=== PATIENT | female | born 1930 | race Caucasian/White ===

== ENCOUNTER 2017-01-13 16:38 | Emergency (ER) | payer MEDICARE, OTHER ==
[~2017-01-13] VITALS: Ht 165.1 cm; Wt 55.5 kg
[~2017-01-13 16:38] MED LIST: ATOR20TA15 PO; Aspirin Chew CHEW; BACL10TA PO; NORC5TAB PO; OMEP20TA PO; ZOFR4TAB PO
[2017-01-13 16:52] VITALS: BP 117/62; PULSE 85; RESP 18; TEMP 98.7; O2SAT 89
[2017-01-13] MEDS ORDERED: ASPI1TAB69 PO (17:10)
--- NOTE | 2017-01-13 17:12 | PD ---
HPI Chief Complaint: Fall Time Seen by Provider: 17:03 Travel History International Travel<30 days: No Contact w/Intl Traveler<30days: No Traveled to known affect area: No History of Present Illness HPI The patient was seen and examined in the presence of the nurse. This patient complains of right mid back pain from a fall. Duration is 14 hours. She was sitting on the toilet and propped her feet up to put lotion on her legs when she lost balance and fell. She struck her right posterior rib cage on the bathtub. This is the area that she has pain in. Worse with movement or deep breath. Severity is moderate. No alleviating factors. 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 PFSH Past Medical History Arthritis: Yes (OSTEOARTHRITIS) Cancer: No Cardiovascular Problems: Yes (hypertension, high cholesterol) High Cholesterol: Yes COPD: Yes Diabetes: No Diminished Hearing: Yes (PT STATES SHE IS [place]) Gastrointestinal Disorders: Yes (Nausea and vomiting) Genitourinary: No Hepatitis: No Hiatal Hernia: No Hypertension: No Immune Disorder: No Medical other: Yes (GERD RECENTLY) Musculoskeletal: Yes (OSTEOPOROSIS) Psychiatric: No Reproductive: No Respiratory: Yes Thyroid Disease: No Influenza Vaccination: Yes ?: Not Menopausal: Yes Past Surgical History Cholecystectomy: Yes Eye Surgery: Yes (MERLENE. CATARACT EXTRACT.) Gynecologic Surgery: Yes (HYSTERECTOMY) Hysterectomy: Yes Other Surgery: Yes Social History Alcohol Use: No Tobacco Use: Yes (1PPD) Substance Use: No Allergies-Medications (Allergen,Severity, Reaction): Coded Allergies: Actonel (Verified Allergy, Severe, Itching, 01/13/17) Penicillin (Verified Allergy, Severe, Hives, 01/13/17) Shellfish (Verified Allergy, Severe, Itching, 01/13/17) Sulfa (Verified Allergy, Severe, VOMITING, 01/13/17) Reported Meds & Prescriptions Reported Meds & Active Scripts Active [place] (Hydrocodone-Acetaminophen) 5-325 mg Tab 1 Tab PO Q6H PRN Reported Aspirin 81 Mg Tabdr 81 Mg PO DAILY Atorvastatin (Atorvastatin Calcium) 20 Mg Tab 20 Mg PO HS Baclofen 10 Mg Tab 10 Mg PO TID Review of Systems General / Constitutional: No: Fever Eyes: No: Visual changes HENT: No: Headaches Cardiovascular: No: Chest Pain or Discomfort Respiratory: No: Shortness of Breath Gastrointestinal: No: Abdominal Pain Genitourinary: No: Dysuria Musculoskeletal: Positive: Pain Skin: No Rash Neurologic: No: Weakness Psychiatric: No: Depression Endocrine: No: Polydipsia Hematologic/Lymphatic: No: Easy Bruising Physical Exam Narrative GENERAL: Thin elderly well-developed patient with right posterior rib cage pain . SKIN: Warm and dry. HEAD: Atraumatic. Normocephalic. EYES: Pupils equal and round. No scleral icterus. No injection or drainage. ENT: No nasal bleeding or discharge. Mucous membranes pink and moist. NECK: Trachea midline. No JVD. CARDIOVASCULAR: Regular rate and rhythm. No murmur appreciated. RESPIRATORY: No accessory muscle use. Diffuse rhonchi. Breath sounds equal bilaterally. GASTROINTESTINAL: Abdomen soft, non-tender, nondistended. Hepatic and splenic margins not palpable. MUSCULOSKELETAL: No obvious deformities. No clubbing. No cyanosis. No edema. She has readily reproducible tenderness to the right rib cage underneath the right scapula. No crepitus or paradoxical rib movement or bruising. NEUROLOGICAL: Awake and alert. No obvious cranial nerve deficits. Motor grossly within normal limits. Normal speech. PSYCHIATRIC: Appropriate mood and affect; insight and judgment normal. Data Data Last Documented VS Vital Signs Date Time Temp Pulse Resp B/P Pulse Ox O2 Delivery O2 Flow Rate FiO2 01/13/17 17:10 93 Nasal Cannula 2 01/13/17 16:52 98.7 85 18 117/62 Orders Iv Access Insert/Monitor (01/13/17 17:09) Ondansetron Inj (Zofran Inj) (01/13/17 17:15) Morphine Inj (Morphine Inj) (01/13/17 17:15) Chest, Single Ap (01/13/17 ) [facility] Medical Decision Making Medical Screen Exam Complete: Yes Emergency Medical Condition: Yes Medical Record Reviewed: Yes Differential Diagnosis Rib fracture, pneumothorax, chest wall contusion Narrative Course I have reviewed the patient's electronic medical record. IV placed I gave her IV morphine and IV Zofran for symptom relief I reviewed her chest x-ray which shows no evidence of pneumothorax or rib fracture Likely has contused ribs. She feels improved after morphine Does have chronic pain and has Lortab at home The patient was advised to follow up with their physician and return if they worsen. Diagnosis Primary Impression: Contusion of rib on right side Qualified Code: S20.211A - Contusion of rib on right side, initial encounter Additional Instructions: The patient was advised to follow up with their physician and return if they worsen. Med/Other Pt SpecificInfo: Other Disposition: 01 DISCHARGE HOME Condition: Stable Chip Peres MD Jan 13, 2017 17:12
[2017-01-13] MEDS ORDERED: MORPHINE SULFATE 4 MG/ML INJ IV PUSH ONE (17:15)
[2017-01-13] MEDS ORDERED: ONDANSETRON HCL 4 MG/2 ML VIAL IVP ONE (17:15)
--- NOTE | 2017-01-13 17:30 | RADHPO ---
EXAM DATE/TIME: 01/13/2017 17:19 [facility] COMPARISON: CHEST PA & LAT, January 20, 2013, 11:51. CHEST SINGLE AP, September 23, 2016, 23:15. INDICATIONS : Right sided chest pain post fall today MEDICAL HISTORY : None. SURGICAL HISTORY : None. ENCOUNTER: Initial ACUITY: 1 day PAIN SCORE: 9/10 LOCATION: Right lower chest FINDINGS: The cardiac silhouette is enlarged in transverse diameter. The lungs are free of acute parenchymal op acity. No effusions are identified. There is prominence of the aortic knob is with calcification litzy acteristic of atherosclerotic vascular disease. There are chronic fibrotic changes bilaterally. CONCLUSION: 1. Cardiomegaly. No acute pulmonary disease. Geoff Lujan MD on January 13, 2017 at 17:28 Board Certified Radiologist. This report was verified electronically.
== END 2017-01-13 18:55 | disposition home or self-care (01) ==
LOC: PHED 16:38
DX: S20.211A Contusion of right front wall of thorax, initial encounter (principal); J44.9 Chronic obstructive pulmonary disease, unspecified; I10 Essential (primary) hypertension; E78.00 Pure hypercholesterolemia, unspecified; W18.12XA Fall from or off toilet with subsequent striking against object, initial encounter; Y93.89 Activity, other specified; Y92.002 Bathroom of unspecified non-institutional (private) residence as the place of occurrence of the external cause; F17.210 Nicotine dependence, cigarettes, uncomplicated
CPT/HCPCS: 71010; 96374; 96375; 99284; J2270; J2405

== ENCOUNTER 2017-02-05 10:27 | Emergency (ER) | payer OTHER ==
[~2017-02-05] VITALS: Ht 165.1 cm; Wt 55.2 kg
[~2017-02-05 10:27] MED LIST changes: +ASPI1TAB69 PO; -Aspirin Chew CHEW; -OMEP20TA PO; -ZOFR4TAB PO
[2017-02-05 10:34] VITALS: BP 142/70; PULSE 70; RESP 16; TEMP 97.7; O2SAT 96
[2017-02-05] MEDS ORDERED: SODIUM CHLOR 0.9% 1000 ML INJ 1,000 ML IV SCH (10:48)
--- NOTE | 2017-02-05 10:52 | PD ---
HPI Chief Complaint: GI Complaint Time Seen by Provider: 10:43 Travel History International Travel<30 days: No Contact w/Intl Traveler<30days: No Traveled to known affect area: No History of Present Illness HPI Patient is a 86-year-old female here with complaint of nausea vomiting diarrhea. Patient was in her normal state of health yesterday. Woke up this morning with complaint of nausea. She's had 4 episodes of emesis. No hematemesis. One episode of loose stool but no georgie diarrhea. No hematochezia. She denies any associated abdominal pain. No fevers or chills. Previous abdominal surgeries include cholecystectomy and hysterectomy. She denies a history of bowel obstruction. Patient has Zofran that she uses when necessary at home for anorexia and chronic nausea. She tried this this a.m., but vomited shortly thereafter and saw the pill in emesis. PFSH Past Medical History Hx Anticoagulant Therapy: Yes (asa 81mg ) Arthritis: Yes (OSTEOARTHRITIS) Cancer: No Cardiovascular Problems: Yes (hypertension, high cholesterol) High Cholesterol: Yes COPD: Yes Diabetes: No Diminished Hearing: Yes (PT STATES SHE IS [place]) Gastrointestinal Disorders: Yes (Nausea and vomiting) Genitourinary: No Hepatitis: No Hiatal Hernia: No Hypertension: No Immune Disorder: No Musculoskeletal: Yes (OSTEOPOROSIS) Psychiatric: No Reproductive: No Respiratory: Yes (copd) Thyroid Disease: No ?: Not Menopausal: Yes Past Surgical History Cholecystectomy: Yes Eye Surgery: Yes (MERLENE. CATARACT EXTRACT.) Gynecologic Surgery: Yes (HYSTERECTOMY) Hysterectomy: Yes Other Surgery: Yes Social History Alcohol Use: No Tobacco Use: Yes (1PPD) Substance Use: No Allergies-Medications (Allergen,Severity, Reaction): Coded Allergies: Actonel (Verified Allergy, Severe, Itching, 02/05/17) Penicillin (Verified Allergy, Severe, Hives, 02/05/17) Shellfish (Verified Allergy, Severe, Itching, 02/05/17) Sulfa (Verified Allergy, Severe, VOMITING, 02/05/17) Reported Meds & Prescriptions Reported Meds & Active Scripts Active Phenergan Supp (Promethazine HCl) 12.5 Mg Supp 12.5 Mg RECTAL Q4H PRN [place] (Hydrocodone-Acetaminophen) 5-325 mg Tab 1 Tab PO Q6H PRN Reported Aspirin 81 Mg Tabdr 81 Mg PO DAILY Atorvastatin (Atorvastatin Calcium) 20 Mg Tab 20 Mg PO HS Baclofen 10 Mg Tab 10 Mg PO TID Review of Systems Except as stated in HPI: all other systems reviewed are Neg Physical Exam Narrative GENERAL: Elderly female dry heaving SKIN: Focused skin assessment warm/dry. HEAD: Normocephalic. EYES: No scleral icterus. No injection or drainage. ENT: Mucous membranes pink and moist. NECK: Supple CARDIOVASCULAR: Regular rate and rhythm. No murmur appreciated. RESPIRATORY: No accessory muscle use. Clear to auscultation. Breath sounds equal bilaterally. GASTROINTESTINAL: Abdomen soft, non-tender, nondistended. Hepatic and splenic margins not palpable. MUSCULOSKELETAL: Normal gait NEUROLOGICAL: Awake and alert. Motor grossly within normal limits. Normal speech. PSYCHIATRIC: Appropriate mood and affect; insight and judgment normal. Data Data Last Documented VS Vital Signs Date Time Temp Pulse Resp B/P Pulse Ox O2 Delivery O2 Flow Rate FiO2 02/05/17 11:54 63 18 119/66 96 Room Air 02/05/17 10:34 97.7 Orders Complete Blood Count With Diff (02/05/17 10:48) Comprehensive Metabolic Panel (02/05/17 10:48) Lipase (02/05/17 10:48) Iv Access Insert/Monitor (02/05/17 10:48) Ecg Monitoring (02/05/17 10:48) Oximetry (02/05/17 10:48) Ondansetron Inj (Zofran Inj) (02/05/17 11:00) Sodium Chlor 0.9% 1000 Ml Inj (Ns 1000 M (02/05/17 10:48) Sodium Chloride 0.9% Flush (Ns Flush) (02/05/17 11:00) Abdomen, Upright Only (02/05/17 10:48) Electrocardiogram (02/05/17 ) Labs Laboratory Tests Test 02/05/17 11:00 White Blood Count 12.5 TH/MM3 Red Blood Count 4.90 MIL/MM3 Hemoglobin 14.6 GM/DL Hematocrit 43.9 % Mean Corpuscular Volume 89.6 FL Mean Corpuscular Hemoglobin 29.7 PG Mean Corpuscular Hemoglobin 33.1 % Concent Red Cell Distribution Width 13.8 % Platelet Count 307 TH/MM3 Mean Platelet Volume 6.9 FL Neutrophils (%) (Auto) 76.8 % Lymphocytes (%) (Auto) 17.7 % Monocytes (%) (Auto) 2.0 % Eosinophils (%) (Auto) 3.1 % Basophils (%) (Auto) 0.4 % Neutrophils # (Auto) 9.5 TH/MM3 Lymphocytes # (Auto) 2.2 TH/MM3 Monocytes # (Auto) 0.3 TH/MM3 Eosinophils # (Auto) 0.4 TH/MM3 Basophils # (Auto) 0.1 TH/MM3 CBC Comment DIFF FINAL Differential Comment Sodium Level 136 MEQ/L Potassium Level 3.8 MEQ/L Chloride Level 98 MEQ/L Carbon Dioxide Level 28.0 MEQ/L Anion Gap 10 MEQ/L Blood Urea Nitrogen 8 MG/DL Creatinine 0.73 MG/DL Estimat Glomerular Filtration 75 ML/MIN Rate Random Glucose 133 MG/DL Calcium Level 9.3 MG/DL Total Bilirubin 0.5 MG/DL Aspartate Amino Transf 12 U/L (AST/SGOT) Alanine Aminotransferase 16 U/L (ALT/SGPT) Alkaline Phosphatase 106 U/L Total Protein 7.3 GM/DL Albumin 3.4 GM/DL Lipase 138 U/L MDM Medical Decision Making Medical Screen Exam Complete: Yes Emergency Medical Condition: Yes Medical Record Reviewed: Yes Differential Diagnosis 86-year-old female here with complaint of nausea vomiting and loose stools this morning. Differential includes gastritis, pancreatitis, hepatobiliary pathology. Her abdominal examination is benign making bowel obstruction less likely. She does have some chronic nausea and vomiting which could contribute to her symptoms. Less likely cardiac equivalent. Narrative Course Patient placed on monitor, IV established and blood obtained. Twelve-lead EKG showed sinus rhythm with T waves are at the precordial leads, similar to patient 's previous EKG. CBC, CMP, lipase unremarkable. X-ray of the abdomen obtained that by my read shows no obvious evidence of obstruction. Again my pretest suspicion is low and I do not think patient warrants CT imaging of the abdomen at this time. She is feeling improved, and was able to tolerate oral challenge and will be discharged home. Diagnosis Primary Impression: Nausea and vomiting Qualified Code: R11.2 - Non-intractable vomiting with nausea, unspecified vomiting type Referrals: Primary Care Physician as needed Patient Instructions: Acute Nausea and Vomiting (ED), General Instructions Additional Instructions: Small, frequent sips of fluids as tolerated. Advance diet slowly. You may use your home Zofran as needed for nausea and vomiting but if you vomit this up, try the Phenergan suppository prescribed. Med/Other Pt SpecificInfo: Prescription(s) given Scripts Promethazine Supp (Phenergan Supp)12.5 Mg Supp12.5 Mg RECTAL Q4H PRN (NAUSEA OR VOMITING) #10 SUPP Ref 0 Prov:Abril Chaparro MD 02/05/17 Disposition: 01 DISCHARGE HOME Condition: Stable Abril Chaparro MD Feb 05, 2017 10:52
[2017-02-05] MEDS ORDERED: SODIUM CHLORIDE 0.9% FLUSH 10 ML FLUSH IV FLUSH PRN (11:00)
[2017-02-05] MEDS ORDERED: ONDANSETRON HCL 4 MG/2 ML VIAL IVP ONE (11:00)
[2017-02-05 11:01] VITALS: O2SAT 98
[2017-02-05 11:11] LABS: AUTOMATED NEUTROPHIL # 9.5 TH/MM3 (1.8-7.7); BASOPHIL # 0.1 TH/MM3 (0-0.2); BASOPHIL % 0.4 % (0.0-2.0); EOSINOPHIL # 0.4 TH/MM3 (0-0.4); EOSINOPHIL % 3.1 % (0.0-4.0); HEMATOCRIT 43.9 % (35.0-46.0); LYMPH % 17.7 % (9.0-44.0); LYMPHOCYTE # 2.2 TH/MM3 (1.0-4.8); MEAN CELL VOLUME 89.6 FL (80.0-100.0); MEAN CORPUSCULAR HEMOGLOBIN 29.7 PG (27.0-34.0); MEAN CORPUSCULAR HGB CONC 33.1 % (32.0-36.0); NEUT % 76.8 % (16.0-70.0); PLATELET COUNT 307 TH/MM3 (150-450); RED CELL DISTRIBUTION WIDTH 13.8 % (11.6-17.2); WHITE BLOOD COUNT 12.5 TH/MM3 (4.0-11.0)
[2017-02-05 11:14] LABS: HEMO FLAGS DIFF FINAL
[2017-02-05 11:21] LABS: CHLORIDE 98 MEQ/L (98-107); POTASSIUM 3.8 MEQ/L (3.5-5.1); SODIUM (NA) 136 MEQ/L (136-145)
[2017-02-05 11:25] LABS: ANION GAP 10 MEQ/L (5-15); BLOOD UREA NITROGEN 8 MG/DL (7-18)
[2017-02-05 11:28] LABS: ALT (GPT) 16 U/L (10-53); AST (GOT) 12 U/L (15-37); GLOMERULAR FILTRATION RATE 75 ML/MIN (>89)
--- NOTE | 2017-02-05 11:29 | RADHPO ---
EXAM DATE/TIME: 02/05/2017 10:57 [facility] COMPARISON: No previous studies available for comparison. INDICATIONS : Vomiting. MEDICAL HISTORY : None. SURGICAL HISTORY : Hysterectomy. Cholecystectomy. ENCOUNTER: Initial ACUITY: 1 day PAIN SCORE: 0/10 LOCATION: Bilateral abdomen FINDINGS: There is no free air. Limited exam shows some scattered air fluid levels in what looks like large an d small bowel. Heart is enlarged. CONCLUSION: Limited exam, scattered air fluid levels without free air. Juan Cason MD FACR on February 05, 2017 at 11:23 Board Certified Radiologist. This report was verified electronically.
[2017-02-05 11:30] LABS: TOTAL BILIRUBIN ADULT 0.5 MG/DL (0.2-1.0)
[2017-02-05 11:31] LABS: ALKALINE PHOSPHATASE 106 U/L (45-117)
[2017-02-05] MEDS ORDERED: PROM2SUP RECTAL (11:41)
[2017-02-05 11:54] VITALS: BP 119/66; PULSE 63; RESP 18; O2SAT 96
[2017-02-05] MEDS ORDERED: MECLIZINE HCL 25 MG TAB PO ONE (12:45)
[2017-02-05] MEDS ORDERED: ONDANSETRON ODT 4 MG TAB PO ONE (12:45)
--- NOTE | 2017-02-07 21:40 | EKG ---
Date Performed: 02/05/2017 Time Performed: 10:57:00 PTAGE: 86 years EKG: Sinus rhythm Left axis deviation Ant/septal and lateral T wave changes may be due to myocardial ischemia Abnormal ECG PREVIOUS TRACING : 09/25/2016 06.04 DOCTOR: Tang Awad Interpretating Date/Time 02/07/2017 21:34:33
== END 2017-02-05 12:53 | disposition home or self-care (01) ==
LOC: PHED 10:27
DX: R11.2 Nausea with vomiting, unspecified (principal); M19.90 Unspecified osteoarthritis, unspecified site; I10 Essential (primary) hypertension; E78.00 Pure hypercholesterolemia, unspecified; J44.9 Chronic obstructive pulmonary disease, unspecified
CPT/HCPCS: 74000; 80053; 83690; 85025; 93005; 96361; 96374; 99284; J2405; J7030

== ENCOUNTER 2018-06-19 15:04 | Observation (INO) ==
--- NOTE | 2018-06-19 16:04 | ED ---
HPI General Chief Complaint: Altered Mental Status Stated Complaint: Altered mental status Time Seen by Provider: 06/19/18 15:24 History of Present Illness HPI narrative: The patient was seen and examined in the presence of the nurse. This patient is brought in by her grandson who takes care of her. She has some dementia but generally will get out of bed and interactive and get around with a walker. He says that she is much worse than usual. She is more confused and lethargic. She has not been out of bed at 11 AM yesterday morning. There is been no injury or fever. She does have COPD but refuses to use her oxygen or nebulizers. Symptom severity is moderate. Duration 2 days. No alleviating factors. No exacerbating factors. Related Data Home Medications Medication Instructions Recorded Confirmed atorvastatin 40 mg PO DAILY 06/19/18 06/19/18 baclofen 25 mg PO TID 06/19/18 06/19/18 ibuprofen 800 mg PO TID 06/19/18 06/19/18 oxycodone 7.5 mg PO Q4-6H PRN 06/19/18 06/19/18 Allergies Allergy/AdvReac Type Severity Reaction Status Date / Time penicillin G Allergy Severe Hives Verified 06/19/18 15:15 risedronate sodium Allergy Severe Itching Verified 06/19/18 15:15 shellfish derived Allergy Severe Itching Verified 06/19/18 15:15 Sulfa (Sulfonamide Allergy Severe VOMITING Verified 06/19/18 15:15 Antibiotics) Review of Systems ROS: all other systems reviewed are negative [facility] Medical History Medical History Arthritis (Acute) COPD (chronic obstructive pulmonary disease) (Acute) Dementia (Acute) Hypercholesterolemia (Acute) Surgical history unknown (Acute) Social History Social History Substance History: No History of Abuse Smoking Status: Current every day smoker Tobacco Type: Cigarettes How Often Do You Have a Drink Containing Alcohol: Never Recent Travel in [facility] within the Last 8 Weeks: No Recent Out of Country Travel within the Last 8 Weeks: No Immunization History Tetanus Immunization: Unsure Hx Influenza Vaccine This Season: Yes Exam Narrative Exam Narrative: GENERAL: Thin elderly well-developed patient in no apparent distress. SKIN: Focused skin assessment reveals no rash and nodules. Skin is Warm and dry. HEAD: Atraumatic. Normocephalic. EYES: Pupils equal and round. No scleral icterus. No injection or drainage. ENT: No nasal bleeding or discharge. Mucous membranes pink and moist. NECK: Trachea midline. No JVD. CARDIOVASCULAR: Regular rate and rhythm. No murmur appreciated. RESPIRATORY: No accessory muscle use. Clear to auscultation. Breath sounds equal bilaterally. GASTROINTESTINAL: Abdomen soft, has suprapubic distention but nontender. Hepatic and splenic margins not palpable. MUSCULOSKELETAL: No obvious deformities. No clubbing. No cyanosis. No edema. NEUROLOGICAL: Awake but drowsy appearing. No obvious cranial nerve deficits. Motor exam challenging to assess accurately due to limited participation. Very limited speech. PSYCHIATRIC: Depressed mood and flat affect; insight and judgment reduced . Course Initial Documented Vital Signs Temperature 98.4 F 06/19/18 15:12 Pulse Rate 87 06/19/18 15:12 Respiratory Rate 18 06/19/18 15:12 Blood Pressure 179/84 H 06/19/18 15:12 Pulse Oximetry 93 L 06/19/18 15:12 Last Documented Vital Signs Temperature 98.4 F 06/19/18 15:12 Pulse Rate 87 06/19/18 15:12 Respiratory Rate 18 06/19/18 15:12 Blood Pressure 179/84 H 06/19/18 15:12 Pulse Oximetry 94 L 06/19/18 15:37 Medical Decision Making MDM Narrative Medical decision making narrative: IV placed and labs sent. Nurse placed a Cunningham catheter and she drained out 2200 cc of yellow urine. She had massive urinary retention. She is 89 years on cath specimen. I gave her 1 g IV Rocephin Labs are reviewed. She has normal renal function and a low potassium of 3.1. Brain CT shows some atrophy but nothing emergent. She requires hospital admission. She has altered mental status and lethargy with some failure to thrive. She has hypokalemia and UTI and massive urinate I reviewed with the hospitalist who will admit. Medical Records Medical records reviewed: Yes I reviewed the patient's medical records. Lab Data Result diagrams: 06/19/18 15:30 06/19/18 15:30 Lab Results 06/19/18 06/19/18 06/19/18 Range/Units 15:17 15:30 15:30 WBC 11.5 H (4.0-11.0) th/mm3 RBC 4.40 (4.00-5.30) mil/mm3 Hgb 12.5 (11.6-15.3) gm/dL Hct 37.5 (35.0-46.0) % MCV 85.3 (80.0-100.0) fL MCH 28.3 (27.0-34.0) pg MCHC 33.2 (32.0-36.0) % RDW 17.4 H (11.6-17.2) % Plt Count 288 (150-450) th/mm3 MPV 7.1 (7.0-11.0) fL Neut % (Auto) 77.9 H (16.0-70.0) % Lymph % (Auto) 16.9 (9.0-44.0) % [place] % (Auto) 4.7 (0.0-8.0) % Eos % (Auto) 0.2 (0.0-4.0) % Baso % (Auto) 0.3 (0.0-2.0) % Neut # (Auto) 9.0 H (1.8-7.7) th/mm3 Lymph # (Auto) 2.0 (1.0-4.8) th/mm3 [place] # (Auto) 0.5 (0.0-0.9) th/mm3 Eos # (Auto) 0.0 (0.0-0.4) th/mm3 Baso # (Auto) 0.0 (0.0-0.2) th/mm3 WBC Differential . Differential Comment Auto diff final Sodium 142 (136-145) meq/L Potassium 3.1 L (3.5-5.1) meq/L Chloride 105 (98-107) meq/L Carbon Dioxide 23.6 (21.0-32.0) meq/L Anion Gap 13 (5-15) meq/L BUN 10 (7-18) mg/dL Creatinine 0.59 (0.50-1.00) mg/dL Estimated GFR Greater than 89 (>89) mL/min POC Glucose 103 (68-110) mg/dl Random Glucose 98 (74-106) mg/dL Calcium 8.3 L (8.5-10.1) mg/dL Total Bilirubin 0.6 (0.2-1.0) mg/dL AST 11 L (15-37) U/L ALT 9 L (10-53) U/L Alkaline Phosphatase 108 (45-117) U/L Total Protein 6.6 (6.4-8.2) g/dL Albumin 3.1 L (3.4-5.0) g/dL TSH 0.572 (0.358-3.740) uIU/mL Urine Color (Yellw/Straw) Urine Clarity (Clear) Urine pH (5.0-8.5) Ur Specific Rowe (1.002-1.035) Urine Protein (Neg-Trace) mg/dL Urine Glucose (UA) (Negative) mg/dL Urine Ketones (Negative) mg/dL Urine Occult Blood (Negative) Urine Nitrate (Negative) Urine Bilirubin (Negative) Urine Urobilinogen (Less than 2) mg/dL Ur Leukocyte Esterase (Negative) Urine RBC (0-3) /hpf Urine WBC (0-5) /hpf Urine Bacteria (None) /hpf Urine Mucus (Occasional) /lpf Micro UA Comment Urine Culture Comments 06/19/18 Range/Units 15:55 WBC (4.0-11.0) th/mm3 RBC (4.00-5.30) mil/mm3 Hgb (11.6-15.3) gm/dL Hct (35.0-46.0) % MCV (80.0-100.0) fL MCH (27.0-34.0) pg MCHC (32.0-36.0) % RDW (11.6-17.2) % Plt Count (150-450) th/mm3 MPV (7.0-11.0) fL Neut % (Auto) (16.0-70.0) % Lymph % (Auto) (9.0-44.0) % [place] % (Auto) (0.0-8.0) % Eos % (Auto) (0.0-4.0) % Baso % (Auto) (0.0-2.0) % Neut # (Auto) (1.8-7.7) th/mm3 Lymph # (Auto) (1.0-4.8) th/mm3 [place] # (Auto) (0.0-0.9) th/mm3 Eos # (Auto) (0.0-0.4) th/mm3 Baso # (Auto) (0.0-0.2) th/mm3 WBC Differential Differential Comment Sodium (136-145) meq/L Potassium (3.5-5.1) meq/L Chloride (98-107) meq/L Carbon Dioxide (21.0-32.0) meq/L Anion Gap (5-15) meq/L BUN (7-18) mg/dL Creatinine (0.50-1.00) mg/dL Estimated GFR (>89) mL/min POC Glucose (68-110) mg/dl Random Glucose (74-106) mg/dL Calcium (8.5-10.1) mg/dL Total Bilirubin (0.2-1.0) mg/dL AST (15-37) U/L ALT (10-53) U/L Alkaline Phosphatase (45-117) U/L Total Protein (6.4-8.2) g/dL Albumin (3.4-5.0) g/dL TSH (0.358-3.740) uIU/mL Urine Color Yellow (Yellw/Straw) Urine Clarity Hazy H (Clear) Urine pH 6.0 (5.0-8.5) Ur Specific [place] 1.008 (1.002-1.035) Urine Protein 30 H (Neg-Trace) mg/dL Urine Glucose (UA) Negative (Negative) mg/dL Urine Ketones Trace H (Negative) mg/dL Urine Occult Blood Moderate H (Negative) Urine Nitrate Negative (Negative) Urine Bilirubin Negative (Negative) Urine Urobilinogen Less than 2 (Less than 2) mg/dL Ur Leukocyte Esterase Moderate H (Negative) Urine RBC 3 (0-3) /hpf Urine WBC 97 H (0-5) /hpf Urine Bacteria Rare H (None) /hpf Urine Mucus Few H (Occasional) /lpf Micro UA Comment Cath-culture ind Urine Culture Comments Cath-cult indicated Imaging Data Radiologist's impression: Head CT 06/19/18 15:37 CONCLUSION: 1. Bilateral cortical atrophy and chronic white matter changes. 2. No significant change compared to the prior examination. . Discharge Plan Discharge Disposition Patient Disposition: 30 Still Patient Discharge Details Diagnosis: Altered mental status, Acute UTI, Adult failure to thrive Physicians Team ED Provider: Chip Peres Primary Care Provider: Jayesh Pardo V Rxs /Orders / Referrals /Forms Prescriptions: No Action atorvastatin 40 mg Tablet 40 mg PO DAILY RF: 0 ibuprofen 800 mg Tablet 800 mg PO TID RF: 0 baclofen 10 mg Tablet 25 mg PO TID RF: 0 oxycodone 7.5 mg Tablet, Oral Only 7.5 mg PO Q4-6H PRN (Reason: Pain) RF: 0 Discharge Interventions Interventions: Vital Signs Last Done: 06/19/18 15:12 Status ED Status: With Doctor
--- NOTE | 2018-06-19 16:24 | CT ---
EXAM DATE: 06/19/2018 4:16 PM EDT AGE/SEX: 87 years / Female INDICATIONS: Altered mental status. CLINICAL DATA: This is the patient's initial encounter. Patient reports that signs and symptoms have been present for 1 day and indicates a pain score of Nonresponsive. MEDICAL/SURGICAL HISTORY: Dementia. None. RADIATION DOSE: 56.35 CTDI (mGy) COMPARISON: [facility], CT BRAIN W/O CONTRAST, 09/24/2016. . TECHNIQUE: CT of the head without contrast. Using automated exposure control and adjustment of the mA and/or kV according to patient size, radiation dose was kept as low as reasonably achievable to ob tain optimal diagnostic quality images. DICOM format image data is available electronically for revi ew and comparison. FINDINGS: Cerebrum: The ventricles are normal for age. Bilateral cortical atrophy and chronic white matter alonzo nges. No evidence of midline shift, mass lesion, hemorrhage or acute infarction. No extraaxial fluid collections are seen. Posterior Fossa: The cerebellum and brainstem are intact. The 4th ventricle is midline. The cerebe llopontine angle is unremarkable. Extracranial: The visualized portion of the orbits is intact. Skull: The calvaria is intact. No evidence of skull fracture. CONCLUSION: 1. Bilateral cortical atrophy and chronic white matter changes. 2. No significant change compared to the prior examination. . Electronically signed by: Dickson Smith MD 06/19/2018 4:22 PM EDT
[2018-06-19 16:34] LABS: Baso % (Auto) 0.3 % (0.0-2.0); Eos % (Auto) 0.2 % (0.0-4.0); Hematocrit 37.5 % (35.0-46.0); Hemoglobin 12.5 gm/dL (11.6-15.3); Lymph % (Auto) 16.9 % (9.0-44.0); Mean Corpuscular HGB Conc 33.2 % (32.0-36.0); Mean Corpuscular Hemoglobin 28.3 pg (27.0-34.0); Mean Corpuscular Volume 85.3 fL (80.0-100.0); Mean Platelet Volume 7.1 fL (7.0-11.0); Mono # (Auto) 0.5 th/mm3 (0.0-0.9); Mono % (Auto) 4.7 % (0.0-8.0); Neut % (Auto) 77.9 % (16.0-70.0); Platelet Count 288 th/mm3 (150-450); Red Cell Distribution Width 17.4 % (11.6-17.2); White Blood Count 11.5 th/mm3 (4.0-11.0)
[2018-06-19 16:42] LABS: Bacteria,Urine Rare /hpf; Bilirubin,Urine Negative (Negative); Clarity,Urine Hazy (Clear); Color,Urine Yellow (Yellw/Straw); Glucose,Urine (UA) Negative (Negative); Leukocyte Esterase,Urine Moderate (Negative); Mucus,Urine Few /lpf (Occasional); Nitrite,Urine Negative (Negative); Specific Gravity,Urine 1.008 (1.002-1.035)
[2018-06-19 16:47] LABS: Alanine Aminotransferase 9 U/L (10-53); Albumin 3.1 g/dL (3.4-5.0); Anion Gap 13 meq/L (5-15); Aspartate Aminotransferase 11 U/L (15-37); Blood Urea Nitrogen 10 mg/dL (7-18); Calcium 8.3 mg/dL (8.5-10.1); Carbon Dioxide 23.6 meq/L (21.0-32.0); Chloride 105 meq/L (98-107); Glomerular Filtration Rate Greater Than 89 mL/min (>89); Glucose,Random 98 mg/dL (74-106); Potassium 3.1 meq/L (3.5-5.1); Sodium 142 meq/L (136-145)
[2018-06-19 16:58] LABS: Alkaline Phosphatase 108 U/L (45-117); Thyroid Stimulating Hormone 0.572 uIU/mL (0.358-3.740); Total Protein 6.6 g/dL (6.4-8.2)
[2018-06-19] MEDS ORDERED: Temazepam 15 MG Capsule PO PRN (17:30)
[2018-06-19] MEDS ORDERED: Bisacodyl 10 MG Supp RECTAL PRN (17:30)
[2018-06-19] MEDS ORDERED: Acetaminophen 325 MG Tablet PO PRN (17:30)
--- NOTE | 2018-06-19 17:55 | P.HP ---
History of Present Illness Service: [facility] Primary Care Physician: Jayesh Pardo MD Chief Complaint: AMS History of Present Illness: 87-year-old female with past medical history significant for COPD, arthritis, dementia, hypercholesteremia, tobacco and alcohol abuse who lives with grandson. Patient presents to the emergency department today with grandson after he noticed patient was not feeling well. Grandjovani reports that since yesterday he has noticed patient has been somewhat confused and calling him by different names. Patient also had nausea yesterday morning and has not been eating much since yesterday. Did not notice any fevers, diarrhea or other symptoms. Grandjovani reports that patient has not been smoking for the past 2 days or drinking for the past 2 days secondary to her altered mental status and confusion. She was able to ambulate today to the toilet and did void. No new changes to medications, no recent falls reported. Workup in the emergency department showed mild leukocytosis WBC count at 11.5, neutrophil count 77.9. Mild hypokalemia patient is seen and examined resting in ED stretcher, awake however confused. She does follow simple commands in bilateral upper and lower extremities and only oriented to self. The majority of history is gathered from grandjovani. - Diagnosis (1) Acute UTI (2) Altered mental status (3) Urinary retention Review of Systems All other systems reviewed negative except as stated in HPI [facility] - History History Provided By: Family Member - Medical History Medical History: Medical History (Last Reviewed 06/19/18 @ 18:18 by Kennedy Alarcon) Arthritis COPD (chronic obstructive pulmonary disease) Dementia Hypercholesterolemia Surgical history unknown - Tobacco History Tobacco Use In Past 30 Days: Yes Smoking Status: Current every day smoker Tobacco Type: Cigarettes - Alcohol History How Often Do You Have a Drink Containing Alcohol: Never - Substance Use History Substance History: No History of Abuse - Travel History Recent Travel in the [place] Within the Last 8 Weeks: No Recent Travel Out of the Country Within the Last 8 Weeks: No - Immunization History Tetanus Immunization: Unsure Hx Influenza Vaccine This Season: Yes Medications and Allergies Active Medications: Active Medications Acetaminophen (Tylenol) 650 mg PO Q4H PRN PRN Reason: Temp > 100.4 Al Hydroxide/Mg Hydroxide (Milk Of Magnesia Liq) 30 ml PO Q12H PRN PRN Reason: Mild Constipation Bisacodyl (Dulcolax Supp) 10 mg RECTAL DAILY PRN PRN Reason: SEVERE CONSITIPATION Enoxaparin Sodium (Lovenox Inj) 30 mg SQ Q24H LILY Ceftriaxone Sodium 1,000 mg/ (Sodium Chloride) 100 mls @ 200 mls/hr IV.SIG Q24H LILY Sodium Chloride (Ns Inj) 1,000 mls @ 100 mls/hr IV.CONT .Q10H LILY Lactulose (Lactulose Liq) 30 ml PO DAILY PRN PRN Reason: SEVERE CONSITIPATION Ondansetron HCl (Zofran Inj) 4 mg IV.PUSH Q6H PRN PRN Reason: NAUSEA OR VOMITING Sodium Chloride (Ns Flush) 2 ml IV.FLUSH PRN PRN PRN Reason: FLUSH AFTER USING IV ACCESS Allergies Allergy/AdvReac Type Severity Reaction Status Date / Time penicillin G Allergy Severe Hives Verified 06/19/18 15:15 risedronate sodium Allergy Severe Itching Verified 06/19/18 15:15 shellfish derived Allergy Severe Itching Verified 06/19/18 15:15 Sulfa (Sulfonamide Allergy Severe VOMITING Verified 06/19/18 15:15 Antibiotics) Home Medications Medication Instructions Recorded Confirmed Type atorvastatin 40 mg PO DAILY 06/19/18 06/19/18 History baclofen 25 mg PO TID 06/19/18 06/19/18 History ibuprofen 800 mg PO TID 06/19/18 06/19/18 History oxycodone 7.5 mg PO Q4-6H PRN 06/19/18 06/19/18 History Exam Vital signs: Vital Signs 06/19/18 15:12 06/19/18 15:37 06/19/18 17:11 Temperature 36.9 C Pulse Rate 87 78 Respiratory Rate 18 18 Blood Pressure 179/84 H 172/79 H Pulse Oximetry 93 L 94 L 99 Intake & Output 06/18/18 06/19/18 06/19/18 18:59 06:59 18:59 Output Total 2199 / 2199 Balance -2199 / -2199 Weight 54.431 kg Output: Urine Amount (Catheter) 2199 / 2199 Indwelling Urethral Catheter 2199 / 2199 Narrative: GENERAL: Thin elderly female, restless. SKIN: Warm and dry. HEAD: Atraumatic. Normocephalic. EYES: Pupils equal and round. No scleral icterus. No injection or drainage. ENT: No nasal bleeding or discharge. Dry mucous membranes. NECK: Trachea midline. No JVD. CARDIOVASCULAR: Regular rate and rhythm. RESPIRATORY: No accessory muscle use. Clear to auscultation. Breath sounds equal bilaterally. GASTROINTESTINAL: Abdomen soft, non-tender, nondistended. + Bowel sounds MUSCULOSKELETAL: Extremities without clubbing, cyanosis, or edema. No obvious deformities. NEUROLOGICAL: Awake, restless oriented to self, diffusely confused, hard of hearing. No obvious cranial nerve deficits. Follows commands, moving bilateral upper and lower extremities. Normal speech. Results - Labs CBC & Chem 7: 06/19/18 15:30 06/19/18 15:30 Labs: Laboratory Results - last 24 hr 06/19/18 06/19/18 06/19/18 15:17 15:30 15:30 WBC 11.5 H RBC 4.40 Hgb 12.5 Hct 37.5 MCV 85.3 MCH 28.3 MCHC 33.2 RDW 17.4 H Plt Count 288 MPV 7.1 Neut % (Auto) 77.9 H Lymph % (Auto) 16.9 [place] % (Auto) 4.7 Eos % (Auto) 0.2 Baso % (Auto) 0.3 Neut # (Auto) 9.0 H Lymph # (Auto) 2.0 [place] # (Auto) 0.5 Eos # (Auto) 0.0 Baso # (Auto) 0.0 WBC Differential . Differential Comment Auto diff final Sodium 142 Potassium 3.1 L Chloride 105 Carbon Dioxide 23.6 Anion Gap 13 BUN 10 Creatinine 0.59 Estimated GFR Greater than 89 POC Glucose 103 Random Glucose 98 Calcium 8.3 L Total Bilirubin 0.6 AST 11 L ALT 9 L Alkaline Phosphatase 108 Total Protein 6.6 Albumin 3.1 L TSH 0.572 Urine Color Urine Clarity Urine pH Ur Specific [place] Urine Protein Urine Glucose (UA) Urine Ketones Urine Occult Blood Urine Nitrate Urine Bilirubin Urine Urobilinogen Ur Leukocyte Esterase Urine RBC Urine WBC Urine Bacteria Urine Mucus Micro UA Comment Urine Culture Comments 06/19/18 15:55 WBC RBC Hgb Hct MCV MCH MCHC RDW Plt Count MPV Neut % (Auto) Lymph % (Auto) [place] % (Auto) Eos % (Auto) Baso % (Auto) Neut # (Auto) Lymph # (Auto) [place] # (Auto) Eos # (Auto) Baso # (Auto) WBC Differential Differential Comment Sodium Potassium Chloride Carbon Dioxide Anion Gap BUN Creatinine Estimated GFR POC Glucose Random Glucose Calcium Total Bilirubin AST ALT Alkaline Phosphatase Total Protein Albumin TSH Urine Color Yellow Urine Clarity Hazy H Urine pH 6.0 Ur Specific [place] 1.008 Urine Protein 30 H Urine Glucose (UA) Negative Urine Ketones Trace H Urine Occult Blood Moderate H Urine Nitrate Negative Urine Bilirubin Negative Urine Urobilinogen Less than 2 Ur Leukocyte Esterase Moderate H Urine RBC 3 Urine WBC 97 H Urine Bacteria Rare H Urine Mucus Few H Micro UA Comment Cath-culture ind Urine Culture Comments Cath-cult indicated - Imaging Impressions Head CT 06/19/18 15:37 CONCLUSION: 1. Bilateral cortical atrophy and chronic white matter changes. 2. No significant change compared to the prior examination. . Caprini VTE Risk Assessment Caprini VTE Risk Assessment: Moderate/High Risk (score >= 2) Caprini Risk Assessment Model: Point Value = 1 Point Value = 2 Point Value = 3 Point Value = 5 Age 41-60 Minor surgery BMI > 25 kg/m2 Swollen legs Varicose veins or History of unexplained or recurrent spontaneous Oral contraceptives or hormone replacement Sepsis (< 1 month) Serious lung disease, including pneumonia (< 1 month) Abnormal pulmonary function Acute myocardial infarction Congestive heart failure (< 1 month) History of inflammatory bowel disease Medical patient at bed rest Age 61-74 Arthroscopic surgery Major open surgery (> 45 min) Laparoscopic surgery (> 45 min) Malignancy Confined to bed (> 72 hours) Immobilizing plaster cast Central venous access Age >= 75 History of VTE Family history of VTE Factor V Leiden Prothrombin [id number] Lupus anticoagulant Anticardiolipin antibodies Elevated serum homocysteine Heparin-induced thrombocytopenia Other congenital or acquired thrombophilia Stroke (< 1 month) Elective arthroplasty Hip, pelvis, or leg fracture Acute spinal cord injury (< 1 month) Prophylaxis Regimen: Total Risk Factor Score Risk Level Prophylaxis Regimen 0-1 Low Early ambulation 2 Moderate Order ONE of the following: *Sequential Compression Device (SCD) *Heparin 5000 units SQ BID 3-4 Higher Order ONE of the following medications: *Heparin 5000 units SQ TID *Enoxaparin/Lovenox 40 mg SQ daily (WT < 150 kg, CrCl > 30 mL/min) *Enoxaparin/Lovenox 30 mg SQ daily (WT < 150 kg, CrCl > 10-29 mL/min) *Enoxaparin/Lovenox 30 mg SQ BID (WT < 150 kg, CrCl > 30 mL/min) AND/OR *Sequential Compression Device (SCD) 5 or more Highest Order ONE of the following medications: *Heparin 5000 units SQ TID (Preferred with Epidurals) *Enoxaparin/Lovenox 40 mg SQ daily (WT < 150 kg, CrCl > 30 mL/min) *Enoxaparin/Lovenox 30 mg SQ daily (WT < 150 kg, CrCl > 10-29 mL/min) *Enoxaparin/Lovenox 30 mg SQ BID (WT < 150 kg, CrCl > 30 mL/min) AND *Sequential Compression Device (SCD) Assessment and Plan - Assessment (1) Acute UTI Code(s): N39.0 - Urinary tract infection, site not specified Status: Acute (2) Altered mental status Code(s): R41.82 - Altered mental status, unspecified Status: Acute (3) Urinary retention Code(s): R33.9 - Retention of urine, unspecified Status: Acute - Plan 87-year-old female with past medical history significant for COPD, arthritis, dementia, hypercholesteremia, tobacco and alcohol abuse who lives with grandson. Patient presents to the emergency department today with grandson due to altered mental status. Urinary tract infection Possible pyelonephritis -UA grossly positive, culture pending -Receive IV Rocephin in the ER, will continue for the moment -Follow final urine culture and sensitivity -Zofran for nausea Urinary retention - Likely due to UTI - >2L of urine removed s/p Cunningham catheter insertion -Maintain catheter in place for the moment, continue IV antibiotics Encephalopathy/AMS Hx Dementia -CT of the head with bilateral cortical atrophy and chronic white matter changes , no significant change compared to prior examination. -EKG with normal sinus rhythm -Secondary to above, treat UTI, provide IV hydration with NS at 100 ml/hr - IV morphine for pain, hold off on oral oxycodone or baclofen for the moment -N.p.o. except for medications Hypokalemia, mild -Provide IV replacement, recheck BMP in the a.m. COPD -Nasal cannula, as needed breathing treatments Hypertension -No reported history of hypertension, possibly secondary to pain -IV morphine for pain -PRN IV Vasotec DVT prophylaxis-subcu Lovenox Discussed Condition With: Discussed with RN and harleen Joseph. (2) Altered mental status Qualifiers: Altered mental status type: somnolence Qualified Code(s): R40.0 - Felix
[2018-06-19] MEDS: Sod Chloride 0.9% Inj 1,000 ML IV.CONT SCH (17:58)
[2018-06-19] MEDS: Potassium Chlor 20 mEq Premix 20 MEQ/100 ML PIGGYBACK IV.SIG SCH ×2 (17:58→21:35)
[2018-06-19] MEDS: Enoxaparin Inj 30 MG/0.3 ML Syringe SQ SCH (21:35)
[2018-06-19] MEDS: Senna/Docusate Sodium 8.6/50 MG Tablet PO SCH (21:35)
[2018-06-19] MEDS: Morphine Inj 4 MG/ML Vial IV.PUSH PRN (21:37)
[2018-06-20] MEDS: Sod Chloride 0.9% Inj 1,000 ML IV.CONT SCH ×4 (01:26→22:43)
[2018-06-20 05:43] LABS: Baso # (Auto) 0.1 th/mm3 (0.0-0.2); Baso % (Auto) 0.5 % (0.0-2.0); Eos # (Auto) 0.1 th/mm3 (0.0-0.4); Eos % (Auto) 0.6 % (0.0-4.0); Hematocrit 37.7 % (35.0-46.0); Hemoglobin 12.1 gm/dL (11.6-15.3); Lymph # (Auto) 2.3 th/mm3 (1.0-4.8); Mean Corpuscular HGB Conc 32.2 % (32.0-36.0); Mean Corpuscular Hemoglobin 27.5 pg (27.0-34.0); Mean Corpuscular Volume 85.6 fL (80.0-100.0); Mean Platelet Volume 6.9 fL (7.0-11.0); Mono # (Auto) 0.8 th/mm3 (0.0-0.9); Mono % (Auto) 5.6 % (0.0-8.0); Neut # (Auto) 11.9 th/mm3 (1.8-7.7); Neut % (Auto) 78.3 % (16.0-70.0); Platelet Count 269 th/mm3 (150-450); Red Cell Distribution Width 16.9 % (11.6-17.2); White Blood Count 15.2 th/mm3 (4.0-11.0)
[2018-06-20 05:57] LABS: Anion Gap 8 meq/L (5-15); Blood Urea Nitrogen 7 mg/dL (7-18); Calcium 8.5 mg/dL (8.5-10.1); Carbon Dioxide 28.8 meq/L (21.0-32.0); Chloride 104 meq/L (98-107); Glomerular Filtration Rate Greater Than 89 mL/min (>89); Glucose,Random 98 mg/dL (74-106); Potassium 3.3 meq/L (3.5-5.1); Sodium 141 meq/L (136-145)
[2018-06-20] MEDS: Senna/Docusate Sodium 8.6/50 MG Tablet PO SCH ×2 (09:30→20:33)
--- NOTE | 2018-06-20 13:21 | P.PN ---
Subjective Interval history: Follow up for UTI, urinary retention, AMS. The patient is awake, alert, oriented to person, hospital, and year "18". Does not know which hospital, does not know the month. She is a poor historian when attempting to explain the events leading up to her admission. She reports moderate sharp stabbing LLQ abdominal pains today. She reports "a little bit" of dysuria and suprapubic pain. Denies nausea/vomiting, fevers/chills. She states she has been more constipated recently with only small amount of stool yesterday. She has no other medical complaints at this time. Physical Exam Vital signs: Vital Signs 06/19/18 15:12 06/19/18 15:37 06/19/18 17:11 Temperature 98.4 F Pulse Rate 87 78 Respiratory Rate 18 18 Blood Pressure 179/84 H 172/79 H Pulse Oximetry 93 L 94 L 99 06/19/18 17:30 06/19/18 20:00 06/19/18 21:14 Temperature 98.1 F Pulse Rate 96 H Respiratory Rate 28 H Blood Pressure 164/64 H Pulse Oximetry 96 95 95 06/20/18 00:00 06/20/18 03:49 06/20/18 08:00 Temperature 98 F 98 F 98.3 F Pulse Rate 101 H 100 H 78 Respiratory Rate 15 16 20 Blood Pressure 145/74 H 148/79 H 143/63 H Pulse Oximetry 95 95 96 06/20/18 11:58 Temperature 98.2 F Pulse Rate 81 Respiratory Rate 16 Blood Pressure 126/59 L Pulse Oximetry 96 Intake & Output 06/19/18 06/20/18 06/20/18 18:59 06:59 18:59 Intake Total 100 / 100 1200 / 1200 Output Total 2200 / 2200 1600 / 1600 Balance -2100 / -2100 -400 / -400 Weight 54.431 kg Intake: IV 100 / 100 1200 / 1200 NS Inj 1,000 ML @ 100 mls/hr IV 1000 / 1000 .CONT .Q10H LILY Rx#:[id number] KCl 20 mEq Premix Inj 20 meq In 200 / 200 100 ml @ 50 mls/hr IV.SIG Q2H LILY Rx#:[id number] Rocephin Inj 1,000 MG In NS Inj 100 / 100 100 ML @ 200 mls/hr IV.SIG ONCE ONE Rx#:[id number] Output: Urine Amount (Catheter) 2199 1600 / 1600 Indwelling Urethral Catheter 2199 1600 / 1600 Narrative: GENERAL: Well-nourished, well-developed elderly female patient in NAD. SKIN: Warm and dry. No rash. HEENT: Normocephalic. Atraumatic. Pupils equal and round. Mucous membranes pink and moist. CARDIOVASCULAR: Regular rate and rhythm. No murmur appreciated. RESPIRATORY: No accessory muscle use. Clear to auscultation. Breath sounds equal bilaterally. GASTROINTESTINAL: Abdomen soft, nondistended, LLQ tenderness to palpation. Normoactive bowel sounds x4. MUSCULOSKELETAL: No obvious deformities. Extremities without clubbing, cyanosis , or edema. NEUROLOGICAL: Awake and alert. No obvious cranial nerve deficits. Motor grossly within normal limits. Moving all extremities spontaneously. Normal speech. - Urinary Catheter Management Indwelling Urethral Catheter Cath placed during this visit: yes Reason for continuing: Chronic Urinary Retention Insertion date: 06/19/18 Insertion time: 15:49 Results - Labs CBC & Chem 7: 06/20/18 05:10 06/20/18 05:10 Laboratory Results - last 24 hr 06/19/18 06/19/18 06/19/18 15:17 15:30 15:30 WBC 11.5 H RBC 4.40 Hgb 12.5 Hct 37.5 MCV 85.3 MCH 28.3 MCHC 33.2 RDW 17.4 H Plt Count 288 MPV 7.1 Neut % (Auto) 77.9 H Lymph % (Auto) 16.9 [place] % (Auto) 4.7 Eos % (Auto) 0.2 Baso % (Auto) 0.3 Neut # (Auto) 9.0 H Lymph # (Auto) 2.0 Jay # (Auto) 0.5 Eos # (Auto) 0.0 Baso # (Auto) 0.0 WBC Differential . Differential Comment Auto diff final Sodium 142 Potassium 3.1 L Chloride 105 Carbon Dioxide 23.6 Anion Gap 13 BUN 10 Creatinine 0.59 Estimated GFR Greater than 89 POC Glucose 103 Random Glucose 98 Calcium 8.3 L Total Bilirubin 0.6 AST 11 L ALT 9 L Alkaline Phosphatase 108 Total Protein 6.6 Albumin 3.1 L TSH 0.572 Urine Color Urine Clarity Urine pH Ur Specific [place] Urine Protein Urine Glucose (UA) Urine Ketones Urine Occult Blood Urine Nitrate Urine Bilirubin Urine Urobilinogen Ur Leukocyte Esterase Urine RBC Urine WBC Urine Bacteria Urine Mucus Micro UA Comment Urine Culture Comments 06/19/18 06/20/18 06/20/18 15:55 05:10 05:10 WBC 15.2 H RBC 4.40 Hgb 12.1 Hct 37.7 MCV 85.6 MCH 27.5 MCHC 32.2 RDW 16.9 Plt Count 269 MPV 6.9 L Neut % (Auto) 78.3 H Lymph % (Auto) 15.0 Jay % (Auto) 5.6 Eos % (Auto) 0.6 Baso % (Auto) 0.5 Neut # (Auto) 11.9 H Lymph # (Auto) 2.3 Jay # (Auto) 0.8 Eos # (Auto) 0.1 Baso # (Auto) 0.1 WBC Differential . Differential Comment Auto diff final Sodium 141 Potassium 3.3 L Chloride 104 Carbon Dioxide 28.8 Anion Gap 8 BUN 7 Creatinine 0.46 L Estimated GFR Greater than 89 POC Glucose Random Glucose 98 Calcium 8.5 Total Bilirubin AST ALT Alkaline Phosphatase Total Protein Albumin TSH Urine Color Yellow Urine Clarity Hazy H Urine pH 6.0 Ur Specific [place] 1.008 Urine Protein 30 H Urine Glucose (UA) Negative Urine Ketones Trace H Urine Occult Blood Moderate H Urine Nitrate Negative Urine Bilirubin Negative Urine Urobilinogen Less than 2 Ur Leukocyte Esterase Moderate H Urine RBC 3 Urine WBC 97 H Urine Bacteria Rare H Urine Mucus Few H Micro UA Comment Cath-culture ind Urine Culture Comments Cath-cult indicated 06/20/18 11:26 WBC RBC Hgb Hct MCV MCH MCHC RDW Plt Count MPV Neut % (Auto) Lymph % (Auto) Jay % (Auto) Eos % (Auto) Baso % (Auto) Neut # (Auto) Lymph # (Auto) Jay # (Auto) Eos # (Auto) Baso # (Auto) WBC Differential Differential Comment Sodium Potassium Chloride Carbon Dioxide Anion Gap BUN Creatinine Estimated GFR POC Glucose 132 H Random Glucose Calcium Total Bilirubin AST ALT Alkaline Phosphatase Total Protein Albumin TSH Urine Color Urine Clarity Urine pH Ur Specific [place] Urine Protein Urine Glucose (UA) Urine Ketones Urine Occult Blood Urine Nitrate Urine Bilirubin Urine Urobilinogen Ur Leukocyte Esterase Urine RBC Urine WBC Urine Bacteria Urine Mucus Micro UA Comment Urine Culture Comments Microbiology 06/19/18 15:55 Catheterized Urine Urine Culture - Preliminary No growth in 24 hours - Imaging Impressions Head CT 06/19/18 15:37 CONCLUSION: 1. Bilateral cortical atrophy and chronic white matter changes. 2. No significant change compared to the prior examination. . Assessment and Plan - Assessment (1) Acute UTI Code(s): N39.0 - Urinary tract infection, site not specified Status: Acute (2) Altered mental status Code(s): R41.82 - Altered mental status, unspecified Status: Acute (3) Urinary retention Code(s): R33.9 - Retention of urine, unspecified Status: Acute - Plan 87-year-old female with past medical history significant for COPD, arthritis, dementia, hypercholesteremia, tobacco and alcohol abuse who lives with grandson. Patient presents to the emergency department today with grandson due to altered mental status. Urinary tract infection, Possible pyelonephritis: afebrile, +leukocytosis WBC 15K. -UA grossly positive, culture pending -Continue IV Rocephin -Follow final urine culture and sensitivity -Zofran for nausea Acute Urinary retention: >2L of urine removed s/p Cunningham catheter insertion in the ED. Possibly secondary to home meds vs UTI, however need to rule out obstructive uropathy -checking CT abd/pelvis -Maintain Cunningham catheter for now -monitor Is&Os LLQ Abdominal Pain: unclear etiology, possibly secondary to infection -checking CT abd/pelvis as above -supportive treatment with IVF, antiemetics, and pain control prn Encephalopathy/AMS: with Hx Dementia. Suspect exacerbated by infection. Patient also on multiple sedating medications. -CT of the head with bilateral cortical atrophy and chronic white matter changes , no significant change compared to prior examination. -EKG with normal sinus rhythm -Secondary to above, treat UTI, provide IV hydration with NS at 100 ml/hr -hold off on patient's baclofen, continue oxycodone at lower dose Hypokalemia, mild -Given IV KCl replacement -Repeat K 3.3, given additional po KCl -Monitor BMP, replace electrolytes as needed COPD: chronic, does not appear to be in exacerbation -continue -Nasal cannula, as needed breathing treatments Hypertension -No reported history of hypertension, possibly secondary to pain -IV morphine for pain -PRN IV Vasotec DVT prophylaxis-Lovenox Discharge Planning: Discharge pending further clinical improvement. Awaiting CT abd/pelvis and urine culture. (2) Altered mental status Qualifiers: Altered mental status type: somnolence Qualified Code(s): R40.0 - Somnolence
[2018-06-20] MEDS ORDERED: Diatrizoate Meglum/Diatrizoate Sod Liq 9 ML UDC PO ONE (14:15)
--- NOTE | 2018-06-20 16:19 | ECG ---
Date Performed: 06/19/2018 Time Performed: 15:18:51 PTAGE: 87 years EKG: Sinus rhythm MARKED LEFT AXIS DEVIATION INCOMPLETE RIGHT BUNDLE BRANCH BLOCK NONSPECIFIC ST & T-WAVE ABNORMALITY ABNORMAL ECG Since the PREVIOUS TRACING , no significant change noted PREVIOUS TRACIN02/05/2017 10.57 DOCTOR: Mckenna Grey Interpretating Date/Time 06/20/2018 16:18:49
--- NOTE | 2018-06-20 18:48 | CT ---
EXAM DATE: 06/20/2018 6:35 PM EDT AGE/SEX: 87 years / Female INDICATIONS: Left lower quadrant pain, urinary retention. CLINICAL DATA: This is the patient's initial encounter. Patient reports that signs and symptoms have been present for 1 day and indicates a pain score of 6/10. MEDICAL/SURGICAL HISTORY: Chronic obstructive pulmonary disease. Dementia. None. ORAL CONTRAST: Prescribed oral contrast ingested. RADIATION DOSE: 6.71 CTDI (mGy) COMPARISON: [facility], CT ABDOMEN & PELVIS W/O CONTRAST, 09/20/2015. . TECHNIQUE: Multiple contiguous axial images were obtained through the abdomen and pelvis following b olus infusion of 70 ml Omnipaque 350 (iohexol) nonionic water-soluble contrast as a single exam dos e. Prescribed oral contrast ingested. Using automated exposure control and adjustment of the mA and/ or kV according to patient size, radiation dose was kept as low as reasonably achievable to obtain op timal diagnostic quality images. DICOM format image data is available electronically for review and comparison. FINDINGS: Lower Lungs: Bronchiectasis is present in the right lower lobe. There is patchy areas of elevated opa city. Liver: The liver has a homogeneous density without space-occupying lesion. There is no dilation of th e biliary tree. Spleen: Homogeneous density without enlargement. Pancreas: Unremarkable without mass or calcification. Kidneys: Normal in size and shape. No evidence of solid mass or hydronephrosis. Bilateral renal cyst s are again noted. Adrenal Glands: Bilateral stable low-density adrenal adenomas are again noted. Aorta: The aorta and proximal iliac vessels are grossly unremarkable without aneurysmal dilation. Bowel/Mesentery: The bowel loops are grossly unremarkable. The cecum and sigmoid colon have a normal configuration. Abdominal Wall: Intact. Retroperitoneum: No evidence of adenopathy in the retrocrural, para-aortic, or deep pelvic regions. Bladder: A Cunningham catheter is present with air-fluid level. There is diffuse bladder wall thickening. Is increased density which is ill-defined within the bladder which could represent hemorrhage or mas s. Reproductive Organs: No abnormal masses or calcifications seen. Inguinal: The inguinal region is unremarkable without evidence of adenopathy. Bony Structures: Osteopenia, degenerative change and scoliosis are present. There are multiple compr ession fracture deformities in the lower thoracic and lumbar spine. CONCLUSION: 1. A catheter in the bladder with air-fluid levels and bladder wall thickening. There is ill-defined increased density which could represent hemorrhage or possible mass. 2. Bronchiectasis in the right lower lobe with areas of consolidative opacity. This could represent pneumonia. 3. Osteopenia and multiple compression fracture deformities in the thoracic and lumbar spine. 4. The kidneys are unremarkable in appearance except for simple cysts. There are no renal calculi or obstruction. 5. Stable bilateral adrenal adenomas. Electronically signed by: Mandeep Mariee MD 06/20/2018 6:47 PM EDT
[2018-06-20] MEDS: Morphine Inj 4 MG/ML Vial IV.PUSH PRN (20:27)
[2018-06-20] MEDS: Enoxaparin Inj 30 MG/0.3 ML Syringe SQ SCH (21:23)
[2018-06-21 07:37] LABS: Baso # (Auto) 0.1 th/mm3 (0.0-0.2); Baso % (Auto) 0.4 % (0.0-2.0); Eos # (Auto) 0.1 th/mm3 (0.0-0.4); Eos % (Auto) 0.5 % (0.0-4.0); Hematocrit 33.2 % (35.0-46.0); Hemoglobin 10.8 gm/dL (11.6-15.3); Lymph # (Auto) 2.1 th/mm3 (1.0-4.8); Lymph % (Auto) 17.6 % (9.0-44.0); Mean Corpuscular HGB Conc 32.4 % (32.0-36.0); Mean Corpuscular Hemoglobin 27.8 pg (27.0-34.0); Mean Corpuscular Volume 85.8 fL (80.0-100.0); Mean Platelet Volume 7.2 fL (7.0-11.0); Mono # (Auto) 0.7 th/mm3 (0.0-0.9); Mono % (Auto) 6.4 % (0.0-8.0); Neut # (Auto) 8.8 th/mm3 (1.8-7.7); Neut % (Auto) 75.1 % (16.0-70.0); Platelet Count 236 th/mm3 (150-450); Red Blood Count 3.87 mil/mm3 (4.00-5.30); Red Cell Distribution Width 16.7 % (11.6-17.2); White Blood Count 11.7 th/mm3 (4.0-11.0)
[2018-06-21 08:06] LABS: Anion Gap 9 meq/L (5-15); Blood Urea Nitrogen 6 mg/dL (7-18); Calcium 8.2 mg/dL (8.5-10.1); Carbon Dioxide 28.4 meq/L (21.0-32.0); Chloride 101 meq/L (98-107); Glomerular Filtration Rate Greater Than 89 mL/min (>89); Glucose,Random 89 mg/dL (74-106); Potassium 3.1 meq/L (3.5-5.1); Sodium 138 meq/L (136-145)
[2018-06-21 08:17] LABS: Magnesium 1.8 mg/dL (1.5-2.5)
[2018-06-21] MEDS: Senna/Docusate Sodium 8.6/50 MG Tablet PO SCH ×2 (10:26→21:31)
[2018-06-21] MEDS: Sod Chloride 0.9% Inj 1,000 ML IV.CONT SCH (10:27)
[2018-06-21] MEDS: Azithromycin Inj 500 MG in Sodium Chlor 0.9% Inj 250 ML IV.SIG SCH (12:18)
--- NOTE | 2018-06-21 14:45 | MB ---
cc: [facility] [place] DO DATE: 06/21/2018 HISTORY OF PRESENT ILLNESS: Ms. Gonzalez is an 87-year-old female who presents with confusion. History was taken at the bedside from the daughter. The patient has a history of dementia. She was found to be in urinary retention upon admission, and a Cunningham catheter was placed for approximately a liter of urine. CT scan was also performed in the emergency room that demonstrated ill-defined increased density, which could represent hemorrhage or mass within the bladder. She was noted to have bilateral simple cysts without any hydronephrosis. According to the daughter, she does have some chronic kidney disease and her creatinine on admission was 0.41. She denies having any urinary tract infections in the past. According to the daughter, however, she does have some difficulty with urination over the last few weeks. She has had a decrease in her ability to ambulate due to her ongoing chronic low back pain from degenerative disk disease. She denies any history of gross hematuria, stones, or infections. PAST MEDICAL HISTORY: Includes COPD, arthritis, dementia, hypercholesterolemia, tobacco and alcohol abuse. PAST SURGICAL HISTORY: Unknown surgical history. SOCIAL HISTORY: Heavy smoker for many, many years. Also, history of alcohol abuse. No drug use is noted. FAMILY HISTORY: Unknown. REVIEW OF SYSTEMS: Unable to obtain due to patient's dementia. PHYSICAL EXAMINATION: VITAL SIGNS: Temperature 98.6, heart rate 75, respiratory rate 16, 137/65. GENERAL: She is a frail 87-year-old female in no acute distress. HEENT: Normocephalic, atraumatic. Pupils equal, round, regular, reactive to light. Extraocular movements intact. NECK: Supple. HEART: Regular rate and rhythm. LUNGS: Diminished breath sounds bilaterally. ABDOMEN: Soft, nontender, nondistended. GENITALIA: Normal female external genitalia is noted. Cunningham catheter is in place, draining clear urine at the present time. EXTREMITIES: Show no cyanosis, clubbing, or edema. NEUROLOGIC: Cranial nerves 2-12 are intact. LABORATORY DATA: White count is noted to be 11.7, hemoglobin 10.8, hematocrit 33.2, platelet count of 236,000. Sodium 138, potassium 3.1, chloride 101, CO2 of 28.4, BUN of 6, creatinine 0.41, glucose of 89. Urinalysis shows moderate leukocyte esterase, 97 white cells and 3 red cells. Again, imaging shows bilateral simple renal cysts with a clot versus mass within the bladder. ASSESSMENT AND PLAN: An 87-year-old female admitted with confusion, with possible urinary tract infection and urinary retention. Cunningham placed for approximately 1 liter of clear urine. We will maintain Cunningham catheter now. Check the urine culture. Continue with IV antibiotics. The patient will need cystoscopy as an outpatient, and would recommend physical therapy and pain management to help with ambulation prior to void trial. Wean narcotics as appropriate. Thank you for the consult and allowing us to participate in the care of this patient. DO Janina Morrow , 02:07 PM , 02:17 PM
--- NOTE | 2018-06-21 17:05 | P.PN ---
Physical Exam Vital signs: Vital Signs 06/20/18 20:00 06/20/18 22:46 06/21/18 00:38 Temperature 98.7 F 97.7 F Pulse Rate 91 H 91 H Respiratory Rate 17 20 Blood Pressure 164/74 H 142/67 H Pulse Oximetry 95 92 L 06/21/18 04:00 06/21/18 06:12 06/21/18 06:17 Temperature 97.8 F Pulse Rate 77 77 77 Respiratory Rate 18 Blood Pressure 109/55 L Pulse Oximetry 06/21/18 07:31 06/21/18 08:00 06/21/18 12:00 Temperature 98.8 F 98.6 F Pulse Rate 79 75 Respiratory Rate 14 16 Blood Pressure 120/58 L 137/65 Pulse Oximetry 94 L 94 L 98 06/21/18 16:00 Temperature 99.4 F Pulse Rate 79 Respiratory Rate 14 Blood Pressure 143/63 H Pulse Oximetry 95 Intake & Output 06/20/18 06/21/18 06/21/18 18:59 06:59 18:59 Intake Total 1350 / 1350 1100 / 1100 1000 / 1000 Output Total 500 / 500 1150 / 1150 Balance 850 / 850 -50 / -50 1000 / 1000 Intake: IV 1000 / 1000 1100 / 1100 1000 / 1000 NS Inj 1,000 ML @ 100 mls/hr IV 1000 / 1000 1000 / 1000 1000 / 1000 .CONT .Q10H [facility] Rx#:[id number] Rocephin Inj 1,000 MG In NS Inj 100 / 100 100 ML @ 200 mls/hr IV.SIG Q24H [facility] Rx#:[id number] Oral 350 / 350 Output: Urine Amount (Catheter) 500 / 500 1150 / 1150 Indwelling Urethral Catheter 500 / 500 1150 / 1150 Other: Date of Last Bowel Movement 06/20/18 - Urinary Catheter Management Indwelling Urethral Catheter Cath placed during this visit: yes Reason for continuing: Chronic Urinary Retention Insertion date: 06/19/18 Insertion time: 15:49 Results - Labs CBC & Chem 7: 06/21/18 06:05 06/21/18 06:05 Laboratory Results - last 24 hr 06/21/18 06/21/18 06:05 06:05 WBC 11.7 H RBC 3.87 L Hgb 10.8 L Hct 33.2 L MCV 85.8 MCH 27.8 MCHC 32.4 RDW 16.7 Plt Count 236 MPV 7.2 Neut % (Auto) 75.1 H Lymph % (Auto) 17.6 [place] % (Auto) 6.4 Eos % (Auto) 0.5 Baso % (Auto) 0.4 Neut # (Auto) 8.8 H Lymph # (Auto) 2.1 [place] # (Auto) 0.7 Eos # (Auto) 0.1 Baso # (Auto) 0.1 WBC Differential . Differential Comment Auto diff final Sodium 138 Potassium 3.1 L Chloride 101 Carbon Dioxide 28.4 Anion Gap 9 BUN 6 L Creatinine 0.41 L Estimated GFR Greater than 89 Random Glucose 89 Calcium 8.2 L Magnesium 1.8 Microbiology 06/19/18 15:55 Catheterized Urine Urine Culture - Final No growth in 48 hours - Imaging Impressions Abdomen/Pelvis CT 06/20/18 00:00 CONCLUSION: 1. A catheter in the bladder with air-fluid levels and bladder wall thickening. There is ill-defined increased density which could represent hemorrhage or possible mass. 2. Bronchiectasis in the right lower lobe with areas of consolidative opacity. This could represent pneumonia. 3. Osteopenia and multiple compression fracture deformities in the thoracic and lumbar spine. 4. The kidneys are unremarkable in appearance except for simple cysts. There are no renal calculi or obstruction. 5. Stable bilateral adrenal adenomas. Assessment and Plan - Assessment (1) Acute UTI Code(s): N39.0 - Urinary tract infection, site not specified Status: Acute (2) Altered mental status Code(s): R41.82 - Altered mental status, unspecified Status: Acute (3) Urinary retention Code(s): R33.9 - Retention of urine, unspecified Status: Acute - Plan 87-year-old female with past medical history significant for COPD, arthritis, dementia, hypercholesteremia, tobacco and alcohol abuse who lives with grandson. Patient presents to the emergency department today with grandson due to altered mental status. Acute Urinary retention: >2L of urine removed s/p Cunningham catheter insertion in the ED. Possibly secondary to home meds vs UTI, however need to rule out obstructive uropathy -CT abd/pelvis -showed density of the bladder question of mass versus hemorrhage. Urology consulted -recommends outpatient cystoscopy. -Maintain Cunningham catheter for now -monitor Is&Os Pneumonia Right lower lobe bronchiectasis. -06/21 Continue Rocephin started for UTI. Add azithromycin. Encephalopathy/AMS: with Hx Dementia. Patient also on multiple sedating medications. -CT of the head with bilateral cortical atrophy and chronic white matter changes , no significant change compared to prior examination. -EKG with normal sinus rhythm -hold off on patient's baclofen, continue oxycodone at lower dose Hypokalemia, mild -Given IV KCl replacement -Repeat K 3.3, given additional po KCl -Monitor BMP, replace electrolytes as needed COPD: chronic, does not appear to be in exacerbation -continue -Nasal cannula, as needed breathing treatments Hypertension -No reported history of hypertension, possibly secondary to pain -IV morphine for pain -PRN IV Vasotec Urinary tract infection -UA grossly positive, culture no growth in 48 hrs -Initially given IV Rocephin DVT prophylaxis-Lovenox (2) Altered mental status Qualifiers: Altered mental status type: somnolence Qualified Code(s): R40.0 - Somnolence
[2018-06-21] MEDS: Enoxaparin Inj 30 MG/0.3 ML Syringe SQ SCH (21:33)
[2018-06-22] MEDS: Sod Chloride 0.9% Inj 1,000 ML IV.CONT SCH ×3 (06:17→17:30)
[2018-06-22 07:35] LABS: Baso # (Auto) 0.1 th/mm3 (0.0-0.2); Baso % (Auto) 0.5 % (0.0-2.0); Eos # (Auto) 0.1 th/mm3 (0.0-0.4); Eos % (Auto) 0.9 % (0.0-4.0); Hematocrit 38.5 % (35.0-46.0); Hemoglobin 12.6 gm/dL (11.6-15.3); Lymph # (Auto) 2.3 th/mm3 (1.0-4.8); Lymph % (Auto) 22.9 % (9.0-44.0); Mean Corpuscular HGB Conc 32.6 % (32.0-36.0); Mean Corpuscular Volume 85.9 fL (80.0-100.0); Mean Platelet Volume 7.3 fL (7.0-11.0); Mono # (Auto) 0.7 th/mm3 (0.0-0.9); Mono % (Auto) 7.3 % (0.0-8.0); Neut # (Auto) 6.8 th/mm3 (1.8-7.7); Neut % (Auto) 68.4 % (16.0-70.0); Platelet Count 257 th/mm3 (150-450); Red Blood Count 4.48 mil/mm3 (4.00-5.30); Red Cell Distribution Width 16.5 % (11.6-17.2); White Blood Count 9.9 th/mm3 (4.0-11.0)
[2018-06-22 08:00] LABS: Anion Gap 9 meq/L (5-15); Blood Urea Nitrogen 4 mg/dL (7-18); Calcium 8.5 mg/dL (8.5-10.1); Carbon Dioxide 30.3 meq/L (21.0-32.0); Chloride 98 meq/L (98-107); Glomerular Filtration Rate Greater Than 89 mL/min (>89); Glucose,Random 91 mg/dL (74-106); Magnesium 1.9 mg/dL (1.5-2.5); Potassium 3.1 meq/L (3.5-5.1); Sodium 137 meq/L (136-145)
[2018-06-22 08:36] LABS: Acanthocytes Occ
[2018-06-22 08:37] LABS: Platelet Estimate Normal (Normal); Platelet Morphology Normal (Normal)
[2018-06-22] MEDS: Senna/Docusate Sodium 8.6/50 MG Tablet PO SCH ×2 (10:55→21:38)
[2018-06-22] MEDS: Azithromycin Inj 500 MG in Sodium Chlor 0.9% Inj 250 ML IV.SIG SCH (10:55)
--- NOTE | 2018-06-22 16:37 | P.PN ---
Subjective Interval history: Patient is seen lying in bed. No family is present. Patient is confused and keeps asking me when she is going to go through "that door over there to go home ". Nurse reports no adverse events. Patient does continue to have a lot of back pain and is difficult to move due to pain. Physical Exam Vital signs: Vital Signs 06/21/18 20:00 06/22/18 00:05 06/22/18 03:50 Temperature 98 F 98.3 F 97.9 F Pulse Rate 93 H 79 76 Respiratory Rate 20 18 18 Blood Pressure 113/56 L 119/85 137/60 Pulse Oximetry 94 L 96 94 L 06/22/18 08:00 06/22/18 10:49 06/22/18 12:00 Temperature 98.8 F 98.0 F Pulse Rate 78 86 88 Respiratory Rate 14 18 Blood Pressure 149/71 H 160/72 H Pulse Oximetry 95 95 93 L 06/22/18 16:00 Temperature 98.0 F Pulse Rate 81 Respiratory Rate 14 Blood Pressure 143/69 H Pulse Oximetry 93 L Intake & Output 06/21/18 06/22/18 06/22/18 18:59 06:59 18:59 Intake Total 1250 / 1250 1100 / 1100 1540 / 1540 Output Total 1125 / 1125 1575 / 1575 1825 / 1825 Balance 125 / 125 -475 / -475 -285 / -285 Intake: IV 1250 / 1250 1100 / 1100 1300 / 1300 NS Inj 1,000 ML @ 100 mls/hr IV 1000 / 1000 1000 / 1000 1050 / 1050 .CONT .Q10H [facility] Rx#:[id number] Azithromycin Inj 500 MG In NS 250 / 250 250 / 250 Inj 250 ML @ 250 mls/hr IV.SIG Q24H [facility] Rx#:[id number] Rocephin Inj 1,000 MG In NS Inj 100 / 100 100 ML @ 200 mls/hr IV.SIG Q24H [facility] Rx#:[id number] Oral 240 / 240 Output: Urine 800 / 800 425 / 425 Urine Amount (Catheter) 1125 / 1125 775 / 775 1400 / 1400 Indwelling Urethral Catheter 1125 / 1125 775 / 775 1400 / 1400 Other: Date of Last Bowel Movement 06/20/18 06/21/18 # Bowel Movements 1 Narrative: GENERAL: Well-nourished, well-developed elderly female patient in [facility]. SKIN: Warm and dry. No rash. HEENT: Normocephalic. Atraumatic. Pupils equal and round. Mucous membranes pink and moist. CARDIOVASCULAR: Regular rate and rhythm. No murmur appreciated. RESPIRATORY: No accessory muscle use. Clear to auscultation. Breath sounds equal bilaterally. GASTROINTESTINAL: Abdomen soft, nondistended, no tenderness. Normoactive bowel sounds x4. MUSCULOSKELETAL: No obvious deformities. Extremities without clubbing, cyanosis , or edema. Lumbar pain. - Urinary Catheter Management Indwelling Urethral Catheter Cath placed during this visit: yes, but has since been removed by the nurse Reason for continuing: Decision to DC catheter Insertion date: 06/19/18 Insertion time: 15:49 Removal date: 06/22/18 Removal time: 15:05 Results - Labs CBC & Chem 7: 06/22/18 06:46 06/22/18 06:46 Laboratory Results - last 24 hr 06/22/18 06/22/18 06:46 06:46 WBC 9.9 RBC 4.48 Hgb 12.6 Hct 38.5 MCV 85.9 MCH 28.0 MCHC 32.6 RDW 16.5 Plt Count 257 MPV 7.3 Prelim Diff (Auto) Slide review pending Neut % (Auto) 68.4 Lymph % (Auto) 22.9 [place] % (Auto) 7.3 Eos % (Auto) 0.9 Baso % (Auto) 0.5 Neut # (Auto) 6.8 Lymph # (Auto) 2.3 [place] # (Auto) 0.7 Eos # (Auto) 0.1 Baso # (Auto) 0.1 WBC Differential . Diff Scan Auto diff confirmed Differential Comment . Platelet Estimate Normal Platelet Morphology Normal Acanthocytes (Spur) Occ H Sodium 137 Potassium 3.1 L Chloride 98 Carbon Dioxide 30.3 Anion Gap 9 BUN 4 L Creatinine 0.45 L Estimated GFR Greater than 89 Random Glucose 91 Calcium 8.5 Magnesium 1.9 Assessment and Plan - Assessment (1) Acute UTI Code(s): N39.0 - Urinary tract infection, site not specified Status: Acute (2) Altered mental status Code(s): R41.82 - Altered mental status, unspecified Status: Acute (3) Urinary retention Code(s): R33.9 - Retention of urine, unspecified Status: Acute - Plan 87-year-old female with past medical history significant for COPD, arthritis, dementia, hypercholesteremia, tobacco and alcohol abuse who lives with grandson. Patient presents to the emergency department with grandson due to altered mental status. Acute Urinary retention: >2L of urine removed s/p Cunningham catheter insertion in the ED. Possibly secondary to home meds vs UTI, however need to rule out obstructive uropathy -CT abd/pelvis -showed density of the bladder question of mass versus hemorrhage. Urology consulted -recommends outpatient cystoscopy. -Cunningham catheter DC'd 06/22 -monitor Is&Os Spinal compression fracture; back pain -Orthopedics consulted -surgery not indicated. Back brace recommended; order placed Pneumonia Right lower lobe bronchiectasis. -06/21 Continue Rocephin started for UTI. Add azithromycin. Encephalopathy/AMS: with Hx Dementia. Patient also on multiple sedating medications. -CT of the head with bilateral cortical atrophy and chronic white matter changes , no significant change compared to prior examination. -EKG with normal sinus rhythm -hold off on patient's baclofen, continue oxycodone at lower dose Hypokalemia, mild -Given IV KCl replacement -Repeat K 3.3-3.1, given additional scheduled po KCl -Monitor BMP, replace electrolytes as needed COPD: chronic, does not appear to be in exacerbation -continue -Nasal cannula, as needed breathing treatments Hypertension -No reported history of hypertension, possibly secondary to pain -IV morphine for pain -PRN IV Vasotec Urinary tract infection -UA grossly positive, culture no growth in 48 hrs -Initially given IV Rocephin DVT prophylaxis-Lovenox (2) Altered mental status Qualifiers: Altered mental status type: somnolence Qualified Code(s): R40.0 - Somnolence
[2018-06-22] MEDS: Enoxaparin Inj 30 MG/0.3 ML Syringe SQ SCH (21:38)
[2018-06-23] MEDS: Sod Chloride 0.9% Inj 1,000 ML IV.CONT SCH ×2 (03:07→03:10)
--- NOTE | 2018-06-23 07:44 | P.CONOP ---
[facility] Orthopedics Consult Note - [facility] Consult date: 06/23/18 Consult reason: fracture, low back pain Chief complaint: ams,failure to thrive, uti, urinary rentention Narrative: 87-year-old female with past medical history significant for COPD, arthritis, dementia, hypercholesteremia, tobacco and alcohol abuse who lives with grandson. Patient presents to the emergency department today with harleen after he noticed patient was not feeling well. Harleen reports that since yesterday he has noticed patient has been somewhat confused and calling him by different names. Patient also had nausea yesterday morning and has not been eating much since yesterday. Did not notice any fevers, diarrhea or other symptoms. Harleen reports that patient has not been smoking for the past 2 days or drinking for the past 2 days secondary to her altered mental status and confusion. She was able to ambulate today to the toilet and did void. Currently, patient has stated she had a recent fall but does not recall exactly when. She complains of low back pain. She does appear confused and does not answer all questions or follow commands but will follow simple commands. Review of Systems Currently denies any fevers, chills, nausea, vomiting, throat pain, abdominal or chest pain. She does report back pain and some leg pain as well. Rest of review of systems difficult to ascertain as patient will not answer all questions. [facility] - History History Provided By: Medical Record - Medical History Medical History: Medical History (Last Reviewed 06/21/18 @ 14:11 by Mandeep Chaparro) Arthritis COPD (chronic obstructive pulmonary disease) Dementia Hypercholesterolemia Surgical history unknown - Tobacco History Tobacco Use In Past 30 Days: Yes Smoking Status: Current every day smoker Tobacco Type: Cigarettes - Alcohol History How Often Do You Have a Drink Containing Alcohol: Never - Substance Use History Substance History: No History of Abuse - Travel History Recent Travel in the [place] Within the Last 8 Weeks: No Recent Travel Out of the Country Within the Last 8 Weeks: No - Immunization History Tetanus Immunization: Unsure Hx Influenza Vaccine This Season: Yes Medications and Allergies Active Medications: Active Medications Acetaminophen (Tylenol) 650 mg PO Q4H PRN PRN Reason: Temp > 100.4 Last Admin: 06/20/18 14:34 Dose: 650 mg Al Hydroxide/Mg Hydroxide (Milk Of Magnesia Liq) 30 ml PO Q12H PRN PRN Reason: Mild Constipation Albuterol (Duoneb Neb (Prn)) 1 ampul NEB Q4HR NEB PRN PRN Reason: SOB/wheezing Bisacodyl (Dulcolax Supp) 10 mg RECTAL DAILY PRN PRN Reason: SEVERE CONSITIPATION Enalaprilat (Vasotec Inj) 1.25 mg IV.PUSH Q6H PRN PRN Reason: SBP>180, DBP>95 Enoxaparin Sodium (Lovenox Inj) 30 mg SQ Q24H [facility] Last Admin: 06/22/18 21:38 Dose: 30 mg Ceftriaxone Sodium 1,000 mg/ (Sodium Chloride) 100 mls @ 200 mls/hr IV.SIG Q24H [facility] Last Infusion: 06/22/18 22:40 Dose: Infused Sodium Chloride (Ns Inj) 1,000 mls @ 100 mls/hr IV.CONT .Q10H [facility] Last Admin: 06/23/18 03:10 Dose: 100 mls/hr Azithromycin 500 mg/ Sodium (Chloride) 250 mls @ 250 mls/hr IV.SIG Q24H [facility] Stop: 06/26/18 23:59 Last Infusion: 06/22/18 12:14 Dose: Infused Lactulose (Lactulose Liq) 30 ml PO DAILY PRN PRN Reason: SEVERE CONSITIPATION Morphine Sulfate (Morphine Inj) 2 mg IV.PUSH Q4H PRN PRN Reason: Pain 3-10 Last Admin: 06/20/18 20:27 Dose: 2 mg Ondansetron HCl (Zofran Inj) 4 mg IV.PUSH Q6H PRN PRN Reason: NAUSEA OR VOMITING Last Admin: 06/20/18 21:23 Dose: 4 mg Oxycodone HCl (Roxicodone) 5 mg PO Q8H PRN PRN Reason: pain scale 5 to 10 Last Admin: 06/23/18 03:06 Dose: 5 mg Potassium Chloride (K-Dur) 20 meq PO BID [facility] Last Admin: 06/22/18 21:42 Dose: 20 meq Senna/Docusate Sodium (Tiara-Colace) 1 tab PO BID [facility] Last Admin: 06/22/18 21:38 Dose: 1 tab Sennosides (Senokot) 17.2 mg PO Q12H PRN PRN Reason: Moderate Constipation Sodium Chloride (Ns Flush) 2 ml IV.FLUSH PRN PRN PRN Reason: FLUSH AFTER USING IV ACCESS Allergies Allergy/AdvReac Type Severity Reaction Status Date / Time penicillin G Allergy Severe Hives Verified 06/19/18 15:15 risedronate sodium Allergy Severe Itching Verified 06/19/18 15:15 shellfish derived Allergy Severe Itching Verified 06/19/18 15:15 Sulfa (Sulfonamide Allergy Severe VOMITING Verified 06/19/18 15:15 Antibiotics) Home Medications Medication Instructions Recorded Confirmed Type atorvastatin 40 mg PO DAILY 06/19/18 06/19/18 History baclofen 25 mg PO TID 06/19/18 06/19/18 History ibuprofen 800 mg PO TID 06/19/18 06/19/18 History oxycodone 7.5 mg PO Q4-6H PRN 06/19/18 06/19/18 History Exam Vital signs: Vital Signs 06/22/18 08:00 06/22/18 10:49 06/22/18 12:00 Temperature 98.8 F 98.0 F Pulse Rate 78 86 88 Respiratory Rate 14 18 Blood Pressure 149/71 H 160/72 H Pulse Oximetry 95 95 93 L 06/22/18 16:00 06/22/18 18:33 06/23/18 01:29 Temperature 98.0 F 97.8 F 96.6 F L Pulse Rate 81 82 87 Respiratory Rate 14 14 18 Blood Pressure 143/69 H 170/74 H 137/65 Pulse Oximetry 93 L 96 95 06/23/18 04:13 Temperature 97.8 F Pulse Rate 80 Respiratory Rate 18 Blood Pressure 141/71 H Pulse Oximetry 98 Intake & Output 06/22/18 06/23/18 06/23/18 18:59 06:59 18:59 Intake Total 1740 / 1740 1160 / 1160 Output Total 1825 / 1825 50 / 50 Balance -85 / -85 1110 / 1110 Intake: IV 1500 / 1500 1100 / 1100 NS Inj 1,000 ML @ 100 mls/hr IV 1250 / 1250 1000 / 1000 .CONT .Q10H [facility] Rx#:[id number] Azithromycin Inj 500 MG In NS 250 / 250 Inj 250 ML @ 250 mls/hr IV.SIG Q24H [facility] Rx#:[id number] Rocephin Inj 1,000 MG In NS Inj 100 / 100 100 ML @ 200 mls/hr IV.SIG Q24H [facility] Rx#:[id number] Oral 240 / 240 60 / 60 Output: Urine 425 / 425 50 / 50 Urine Amount (Catheter) 1399 Indwelling Urethral Catheter 1399 Other: # Voids 1 Date of Last Bowel Movement 06/21/18 Narrative: Awake, alert, no acute distress. Patient is seen trying to get out of her bed as I entered the room. Patient appears mildly confused and again asks why she is here. Normocephalic Pupils appeared equal No JVD [place] because membranes Patient appears very thin. Patient has tenderness about the lower facet and lumbar spine Bilateral upper extremities: Appears grossly intact throughout as she is using her arms to move in bed. No gross deformities or tenderness to palpation. Full active range of motion. Brisk cap refill. Bilateral lower extremities: Again, patient appears grossly intact throughout as she is on her legs over the side of the bed to try to stand on her own. Patient does diameter positive EHL and FHL on exam along with dorsiflexion and plantarflexion. Patient is minimally cooperative with more proximal exam. Sensation appears intact. Brisk cap refill. Nonlabored respirations Regular rate Soft nontender abdomen No rash Confused at baseline Results - Labs Result Diagrams: 06/22/18 06:46 06/22/18 06:46 Labs: Laboratory Results - last 24 hr 06/22/18 06/22/18 06:46 06:46 WBC 9.9 RBC 4.48 Hgb 12.6 Hct 38.5 MCV 85.9 MCH 28.0 MCHC 32.6 RDW 16.5 Plt Count 257 MPV 7.3 Prelim Diff (Auto) Slide review pending Neut % (Auto) 68.4 Lymph % (Auto) 22.9 [place] % (Auto) 7.3 Eos % (Auto) 0.9 Baso % (Auto) 0.5 Neut # (Auto) 6.8 Lymph # (Auto) 2.3 [place] # (Auto) 0.7 Eos # (Auto) 0.1 Baso # (Auto) 0.1 WBC Differential . Diff Scan Auto diff confirmed Differential Comment . Platelet Estimate Normal Platelet Morphology Normal Acanthocytes (Spur) Occ H Sodium 137 Potassium 3.1 L Chloride 98 Carbon Dioxide 30.3 Anion Gap 9 BUN 4 L Creatinine 0.45 L Estimated GFR Greater than 89 Random Glucose 91 Calcium 8.5 Magnesium 1.9 Assessment and Plan - Assessment and Plan 87yo F with multiple thoracic and lumbar compression fractures (T12, L2, L3, L4 , poss T10) 1. Patient with acute appearing compression fractures on CT scan. I discussed with the patient that most compression fractures will heal on their own because of nonoperative management including bracing, activity modification and medications. At this time I would recommend the patient use a TLSO when she is upright and out of bed. I did discuss with the patient that should she have continued and persistent back pain, kyphoplasty could be an option. 2. Patient should be mobilized with physical therapy in her brace. 3. Patient can follow-up in my office in approximately 2-3 weeks.
[2018-06-23 09:19] LABS: Anion Gap 8 meq/L (5-15); Blood Urea Nitrogen 3 mg/dL (7-18); Calcium 8.5 mg/dL (8.5-10.1); Chloride 98 meq/L (98-107); Glomerular Filtration Rate Greater Than 89 mL/min (>89); Glucose,Random 99 mg/dL (74-106); Potassium 3.2 meq/L (3.5-5.1); Sodium 135 meq/L (136-145)
[2018-06-23] MEDS: Senna/Docusate Sodium 8.6/50 MG Tablet PO SCH (09:42)
[2018-06-23] MEDS: Azithromycin Inj 500 MG in Sodium Chlor 0.9% Inj 250 ML IV.SIG SCH (12:28)
--- NOTE | 2018-06-23 15:18 | P.PN ---
Subjective Interval history: Patient is seen resting in bed. She seems more alert today but continues to be primarily oriented to self. Her youngest son is present. Nursing denies any adverse events. Family is very anxious to take her home. Physical Exam Vital signs: Vital Signs 06/22/18 16:00 06/22/18 18:33 06/23/18 01:29 Temperature 98.0 F 97.8 F 96.6 F L Pulse Rate 81 82 87 Respiratory Rate 18 Blood Pressure 143/69 H 170/74 H 137/65 Pulse Oximetry 93 L 96 95 06/23/18 04:13 06/23/18 08:00 06/23/18 12:00 Temperature 97.8 F 98.0 F 97.5 F L Pulse Rate 80 87 88 Respiratory Rate 16 Blood Pressure 141/71 H 138/74 156/71 H Pulse Oximetry 98 95 97 Intake & Output 06/22/18 06/23/18 06/23/18 18:59 06:59 18:59 Intake Total 1740 / 1740 1160 / 1160 Output Total 1825 / 1825 50 / 50 Balance -85 / -85 1110 / 1110 Intake: IV 1500 / 1500 1100 / 1100 NS Inj 1,000 ML @ 100 mls/hr IV 1250 / 1250 1000 / 1000 .CONT .Q10H [facility] Rx#:[id number] Azithromycin Inj 500 MG In NS 250 / 250 Inj 250 ML @ 250 mls/hr IV.SIG Q24H [facility] Rx#:[id number] Rocephin Inj 1,000 MG In NS Inj 100 / 100 100 ML @ 200 mls/hr IV.SIG Q24H [facility] Rx#:[id number] Oral 240 / 240 60 / 60 Output: Urine 425 / 425 50 / 50 Urine Amount (Catheter) 1400 / 1400 Indwelling Urethral Catheter 1400 / 1400 Other: # Voids 1 Date of Last Bowel Movement 06/21/18 Narrative: GENERAL: Well-nourished, well-developed elderly female patient in [facility]. SKIN: Warm and dry. No rash. HEENT: Normocephalic. Atraumatic. Pupils equal and round. Mucous membranes pink and moist. CARDIOVASCULAR: Regular rate and rhythm. No murmur appreciated. RESPIRATORY: No accessory muscle use. Clear to auscultation. Breath sounds equal bilaterally. GASTROINTESTINAL: Abdomen soft, nondistended, no tenderness. Normoactive bowel sounds x4. MUSCULOSKELETAL: No obvious deformities. Extremities without clubbing, cyanosis , or edema. Lumbar pain. - Urinary Catheter Management Indwelling Urethral Catheter Cath placed during this visit: yes, but has since been removed by the nurse Reason for continuing: Decision to DC catheter Insertion date: 06/19/18 Insertion time: 15:49 Removal date: 06/22/18 Removal time: 15:05 Results - Labs CBC & Chem 7: 06/22/18 06:46 06/23/18 08:32 Laboratory Results - last 24 hr 06/23/18 08:32 Sodium 135 L Potassium 3.2 L Chloride 98 Carbon Dioxide 29.0 Anion Gap 8 BUN 3 L Creatinine 0.29 L Estimated GFR Greater than 89 Random Glucose 99 Calcium 8.5 Assessment and Plan - Assessment (1) Acute UTI Code(s): N39.0 - Urinary tract infection, site not specified Status: Resolved (2) Altered mental status Code(s): R41.82 - Altered mental status, unspecified Status: Resolved (3) Urinary retention Code(s): R33.9 - Retention of urine, unspecified Status: Chronic - Plan 87-year-old female with past medical history significant for COPD, arthritis, dementia, hypercholesteremia, tobacco and alcohol abuse who lives with grandson. Patient presents to the emergency department with grandson due to altered mental status. Acute Urinary retention: >2L of urine removed s/p Cunningham catheter insertion in the ED. Possibly secondary to home meds vs UTI, however need to rule out obstructive uropathy -CT abd/pelvis -showed density of the bladder question of mass versus hemorrhage. Urology consulted -recommends outpatient cystoscopy. -Cunningham catheter DC'd 06/22 -monitor Is&Os Spinal compression fracture; back pain -Orthopedics consulted -surgery not indicated. Back brace fitted. Pneumonia Right lower lobe bronchiectasis. -06/21 Continue Rocephin started for UTI. Add azithromycin. Discharge on azithromycin only Encephalopathy/AMS: with Hx Dementia. Patient also on multiple sedating medications. -CT of the head with bilateral cortical atrophy and chronic white matter changes , no significant change compared to prior examination. -EKG with normal sinus rhythm -hold off on patient's baclofen, continue oxycodone at lower dose Hypokalemia, mild -Given IV KCl replacement -Repeat K 3.3-3.1, given additional scheduled po KCl; mag normal -Monitor BMP, replace electrolytes as needed COPD: chronic, does not appear to be in exacerbation -continue -Nasal cannula, as needed breathing treatments Hypertension -No reported history of hypertension, possibly secondary to pain -IV morphine for pain -PRN IV Vasotec Urinary tract infection -UA grossly positive, culture no growth in 48 hrs -Initially given IV Rocephin DVT prophylaxis-Lovenox (2) Altered mental status Qualifiers: Altered mental status type: somnolence Qualified Code(s): R40.0 - Somnolence
--- NOTE | 2018-06-23 15:21 | P.DCO ---
- Diagnosis (1) Pneumonia - Home Health Nursing Order: Medical education, Signs/symptoms of disease process, Medication education-adverse effect, Nursing assessment with vital signs - Certification I have seen patient Dariana Gonzalez on 06/23/18. My clinical findings support the need for the requested home health care services because: Limited mobility due to disease progression, Patient has SOB, Deconditioned with increased weakness, Medication compliance is questionable, Limited ability to care for self, Impaired cognition/judgement, High risk of falls I certify that my clinical findings support that this patient is homebound because: Post-op weakness, Impaired cognitive ability/safety, Hx COPD - exertion dyspnea/ weakness, Unsteady gait/balance, Unsafe to leave home unassisted, Unable to use public transportation (1) Pneumonia Qualifiers: Pneumonia type: due to unspecified organism
--- NOTE | 2018-06-23 15:37 | P.DS ---
Date of admission: 06/19/18 17:22 Primary care physician: Jayesh Pardo MD Attending physician on discharge: Juan Mg Anticipated date of discharge: 06/23/18 Brief History from admission: 87-year-old female with past medical history significant for COPD, arthritis, dementia, hypercholesteremia, tobacco and alcohol abuse who lives with grandson. Patient presents to the emergency department today with harleen after he noticed patient was not feeling well. Grandson reports that since yesterday he has noticed patient has been somewhat confused and calling him by different names. Patient also had nausea yesterday morning and has not been eating much since yesterday. Did not notice any fevers, diarrhea or other symptoms. Harleen reports that patient has not been smoking for the past 2 days or drinking for the past 2 days secondary to her altered mental status and confusion. She was able to ambulate today to the toilet and did void. No new changes to medications, no recent falls reported. Workup in the emergency department showed mild leukocytosis WBC count at 11.5, neutrophil count 77.9. Mild hypokalemia patient is seen and examined resting in ED stretcher, awake however confused. She does follow simple commands in bilateral upper and lower extremities and only oriented to self. The majority of history is gathered from grandjovani. DS: Diagnosis - Discharge Diagnosis (1) Pneumonia Status: Acute (2) Impaired gait and mobility Status: Acute (3) Adult failure to thrive Status: Acute (4) Urinary retention Status: Chronic (5) Altered mental status Status: Resolved (6) Acute UTI Status: Resolved DS: Summary Hospital Course: 87-year-old female with past medical history significant for COPD, arthritis, dementia, hypercholesteremia, tobacco and alcohol abuse who lives with grandson. Patient presents to the emergency department with harleen due to altered mental status. Patient was found to have Acute Urinary retention: >2L of urine removed s/p Cunningham catheter insertion in the ED. CT abd/pelvis -showed density of the bladder question of mass versus hemorrhage. Urology consulted - recommends outpatient cystoscopy. She also has a complaint of chronic back pain that has worsened recently per her family. CT of done of the abdomen pelvis indicated compression fractures; orthopedics consulted who recommended back brace as surgery is not indicated. Patient was initially suspected of having a UTI and was started on Rocephin. Urine culture showed no growth after 48 hours. X-ray did show right lower lobe bronchiectasis/ pneumonia. Azithromycin added. Acute confusion appears to have resolved somewhat and family status the patient is at baseline dementia. Patient also on multiple sedating medications at home. CT of the head with bilateral cortical atrophy and chronic white matter changes, no significant change compared to prior examination. EKG with normal sinus rhythm Noted to have mild hypokalemia throughout hospitalization. Replacement given; mag normal. Patient discharged with 4 days of p.o. replacement (20 mEq daily) - should repeat BMP on Wednesday and follow-up with primary care provider at that time. - Time Spent with Patient Total time spent providing and/or coordinating discharge services: Less than 30 minutes - Quality: VTE Deep Vein Thrombosis/Pulmonary Embolism Present on Admission: No Exam Vital signs: Vital Signs 06/22/18 16:00 06/22/18 18:33 06/23/18 01:29 Temperature 98.0 F 97.8 F 96.6 F L Pulse Rate 81 82 87 Respiratory Rate 14 14 18 Blood Pressure 143/69 H 170/74 H 137/65 Pulse Oximetry 93 L 96 95 06/23/18 04:13 06/23/18 08:00 06/23/18 12:00 Temperature 97.8 F 98.0 F 97.5 F L Pulse Rate 80 87 88 Respiratory Rate 18 16 16 Blood Pressure 141/71 H 138/74 156/71 H Pulse Oximetry 98 95 97 Intake & Output 06/22/18 06/23/18 06/23/18 18:59 06:59 18:59 Intake Total 1740 / 1740 1160 / 1160 250 / 250 Output Total 1825 / 1825 50 / 50 Balance -85 / -85 1110 / 1110 250 / 250 Intake: IV 1500 / 1500 1100 / 1100 250 / 250 NS Inj 1,000 ML @ 100 mls/hr IV 1250 / 1250 1000 / 1000 .CONT .Q10H [facility] Rx#:[id number] Azithromycin Inj 500 MG In NS 250 / 250 250 / 250 Inj 250 ML @ 250 mls/hr IV.SIG Q24H [facility] Rx#:[id number] Rocephin Inj 1,000 MG In NS Inj 100 / 100 100 ML @ 200 mls/hr IV.SIG Q24H [facility] Rx#:[id number] Oral 240 / 240 60 / 60 Output: Urine 425 / 425 50 / 50 Urine Amount (Catheter) 1400 / 1400 Indwelling Urethral Catheter 1400 / 1400 Other: # Voids 1 Date of Last Bowel Movement 06/21/18 Narrative: GENERAL: Well-nourished, well-developed elderly female patient in [facility]. SKIN: Warm and dry. No rash. HEENT: Normocephalic. Atraumatic. Pupils equal and round. Mucous membranes pink and moist. CARDIOVASCULAR: Regular rate and rhythm. No murmur appreciated. RESPIRATORY: No accessory muscle use. Clear to auscultation. Breath sounds equal bilaterally. GASTROINTESTINAL: Abdomen soft, nondistended, no tenderness. Normoactive bowel sounds x4. MUSCULOSKELETAL: No obvious deformities. Extremities without clubbing, cyanosis , or edema. Lumbar pain. Results Procedures completed during hospitalization: none Labs on day of discharge: Labs from last 24 hours 06/23/18 08:32 Sodium 135 L Potassium 3.2 L Chloride 98 Carbon Dioxide 29.0 Anion Gap 8 BUN 3 L Creatinine 0.29 L Estimated GFR Greater than 89 Random Glucose 99 Calcium 8.5 - Impressions ITS Impressions Head CT 06/19/18 15:37 CONCLUSION: 1. Bilateral cortical atrophy and chronic white matter changes. 2. No significant change compared to the prior examination. . Abdomen/Pelvis CT 06/20/18 00:00 CONCLUSION: 1. A catheter in the bladder with air-fluid levels and bladder wall thickening. There is ill-defined increased density which could represent hemorrhage or possible mass. 2. Bronchiectasis in the right lower lobe with areas of consolidative opacity. This could represent pneumonia. 3. Osteopenia and multiple compression fracture deformities in the thoracic and lumbar spine. 4. The kidneys are unremarkable in appearance except for simple cysts. There are no renal calculi or obstruction. 5. Stable bilateral adrenal adenomas. Discharge Plan - Discharge Disposition Patient Disposition: W/Home Health Service - Discharge Condition Condition: Stable - Discharge Order Discharge Orders: Discharge Order (Routine); Ordered 06/23/18 Ordered By: Loida Heredia - Physicians Team Primary Care Provider: Jayesh Pardo V Attending Provider: Juan Mg Other Providers: Sana Hood ; River Birmingham DO ; John Reddy MD
[2018-06-23 16:31] VITALS: BP 153/75; PULSE 85; RESP 12; TEMP 97.9; O2SAT 95
[2018-06-24] MEDS ORDERED: Azithromycin 250 MG Tablet PO SCH (09:00)
== END 2018-06-23 18:42 | disposition home health service (06) ==
LOC: NEPGCP 15:04 → NEPC 15:04 → NEDA 17:22 → INTOOBSV 17:22 → NEDA 18:51 → NEPGCP 18:56
PROVIDERS: ADMIT Hospitalist; ATTEND Hospitalist